=== PATIENT | female | born 1935 | race Asian ===

== ENCOUNTER 2020-05-30 20:05 | Inpatient (IN) | payer OTHER, MEDICARE ==
[~2020-05-30] VITALS: Ht 147.3 cm; Wt 86.6 kg
--- NOTE | 2020-05-30 20:06 | NUR ---
PT TAKEN TO BED 5 BY EMS VIA GURNEY. ERMD AT BEDSIDE EVALUATING PT.
[2020-05-30 20:10] VITALS: BP 113/57
--- NOTE | 2020-05-30 20:18 | NUR ---
ekg performed at bedside. ekg reads sinus rhythm @ 74
--- NOTE | 2020-05-30 20:30 | NUR ---
84 Y/O FEMALE BIBA C/O ALOC X TODAY. FAMILY SAYS SHE HAD A UTI FOR A WEEK AND THINKS THE ANTIIOTICS ARENT HELPING. + WEAKNESS AND LETHARGIC. FOLLOWS COMMANDS. A&O X2 (NAME, ). LUNG SOUNDS ARE DIMINISHED ALL THORUGHOUT. SPO2 IS 100& ON 4L NC. PT IS O2 DEPENDENT AT HOME. EQUAL CHEST RISE AND FALL. NO RESP DISTRESS NOTED. VSS. SKIN IS WARM AND DRY. CAP REFILL < 3. FAST IS NEG. EKG SHOWS RBBB WITH NSR. NKDA. PMH: COPD, GERD, CHF, HTN.
[2020-05-30 21:06] LABS: BASOPHILS # (AUTO) 0.1 K/uL (0.00-0.22); EOSINOPHILS # (AUTO) 0.2 K/uL (0-0.4); EOSINOPHILS % (AUTO) 2.4 % (0.0-4.0); HEMATOCRIT 23.3 % (36-48); HEMOGLOBIN 7.4 g/dL (12.0-16.0); LYMPHOCYTES # (AUTO) 0.9 K/uL (2.5-16.5); LYMPHOCYTES % (AUTO) 9.1 % (20.5-51.1); MEAN CORPUSCULAR HEMOGLOBIN 29 pg (27-31); MEAN CORPUSCULAR HGB CONC 32 g/dL (33-37); MEAN CORPUSCULAR VOLUME 91.5 fL (80-94); MONOCYTES # (AUTO) 0.7 K/uL (0.8-1.0); MONOCYTES % (AUTO) 7.3 % (1.7-9.3); NEUTROPHILS # (AUTO) 7.5 K/uL (1.8-7.7); NEUTROPHILS % (AUTO) 80.2 % (42.2-75.2); PLATELET COUNT (AUTO) 191 K/uL (140-450); RED BLOOD CELL COUNT(AUTO) 2.54 MIL/uL (4.20-5.40); RED CELL DISTRIBUTION WIDTH 15.4 % (11.6-13.7); WHITE BLOOD COUNT (AUTO) 9.4 K/uL (4.8-10.8)
[2020-05-30 21:17] LABS: ACETAMINOPHEN 1.2 ug/ml (10-30); ALBUMIN 3.2 g/dL (3.4-5.0); ANION GAP 8.4 (8-16); ASPARTATE AMINOTRANSFERASE 30 U/L (15-37); CARBON DIOXIDE 33.6 mmol/L (21-32); CHLORIDE 108 mmol/L (98-107); CREATININE 1.4 mg/dL (0.6-1.3); GLUCOSE 132 mg/dL (74-106); SALICYLATE < 2.8 mg/dL (2.8-20.0); SODIUM SERUM 145 mmol/L (136-145); TOTAL BILIRUBIN 0.6 mg/dL (0.0-1.0); UREA NITROGEN, BLOOD 17 mg/dL (7-18)
--- NOTE | 2020-05-30 21:50 | NUR ---
YELLOW CLEAR URINE COLLECTED AND SENT TO LAB. 300MLS OF URINE OUTPUT NOTED.
--- NOTE | 2020-05-30 22:00 | NUR ---
MULTIPLE ATTEMPTS ON IV. UNSUCCESSFUL, ANKIT BHAGAT AWARE.
--- NOTE | 2020-05-30 22:18 | NUR ---
KEVIN SWAB COLLECTED AND SENT TO LAB.
[2020-05-30 22:26] LABS: APPEARANCE,URINE SL CLOUDY (CLEAR); BILIRUBIN,URINE NEGATIVE (NEGATIVE); BLOOD, URINE TRACE-I (NEGATIVE); COLOR,URINE YELLOW (YELLOW); LEUKOCYTE ESTERASE ,URINE NEGATIVE (NEGATIVE); NITRITE, URINE NEGATIVE (NEGATIVE); PH,URINE 5.5 (5.0-9.0); UGLUCOSE NEGATIVE (NEGATIVE)
--- NOTE | 2020-05-30 23:16 | NUR ---
Female Ob Nurse accompanied female patient for Rectal Exam.
[2020-05-30 23:25] LABS: BARBITURATE, URINE NEGATIVE ng/ml (NEG <=200); BENZODIAZEPINE, URINE NEGATIVE ng/mL (NEG <=200); CANNABINOID, URINE NEGATIVE ng/mL (NEG <=50); COCAINE, URINE NEGATIVE ng/mL (NEG <=300); OPIATE, URINE NEGATIVE ng/mL (NEG <=2000); PHENCYCLIDINE SCREEN,URINE NEGATIVE ng/mL (NEG <=25)
--- NOTE | 2020-05-30 23:27 | NUR ---
LAB CALLED. PT IS COVID +
[2020-05-30] MEDS ORDERED: AZITHROMYCIN 500 MG in DEXTROSE 5% 250 ML IV ONE (23:30)
--- NOTE | 2020-05-30 23:30 | NUR ---
US GUIDED IV STARTED. 18 GUAGE ON LEFT UPPER ARM.
--- NOTE | 2020-05-30 23:33 | NUR ---
PT MOVED TO ER BED 1
[2020-05-30] MEDS ORDERED: NACL 0.9% 1,000 ML IV ONE (23:35)
[2020-05-30] MEDS ORDERED: cefTRIAXone 1,000 MG VIAL ONE (23:37)
[2020-05-30] MEDS ORDERED: AZITHROMYCIN 500 MG INJ VIAL IV ONE (23:38)
--- NOTE | 2020-05-30 23:49 | NUR ---
GAVE REPORT TO RAGHU WOODRUFF. TRANSFER OF CARE AT THIS TIME.
[2020-05-30 23:56] LABS: URINE AMORPHOUS URATE 1+ /HPF (None Seen); WBC,URINE 0-5 /HPF (0-5)
[2020-05-31] VITALS (28 sets, daily range): BP systolic 82–142; BP diastolic 30–68
[2020-05-31] MEDS ORDERED: GABA300C PO (00:06)
[2020-05-31] MEDS ORDERED: CARV25TA PO (00:06)
[2020-05-31] MEDS ORDERED: FURO-570 PO (00:06)
[2020-05-31] MEDS ORDERED: ZYL300 PO (00:06)
[2020-05-31] MEDS ORDERED: FLO110 INH (00:06)
[2020-05-31] MEDS ORDERED: TRI48 PO (00:06)
[2020-05-31] MEDS ORDERED: ALBU0.0912 IH (00:06)
[2020-05-31] MEDS ORDERED: MIRT-92 PO (00:06)
[2020-05-31] MEDS ORDERED: FERR325E14 PO (00:06)
[2020-05-31] MEDS ORDERED: SENN1TAB25 PO (00:06)
[2020-05-31] MEDS ORDERED: [UNRECOGNIZED DRUG - CODE] PO (00:06)
[2020-05-31] MEDS ORDERED: ASPI-1822 PO (00:06)
[2020-05-31] MEDS ORDERED: ATOR20TA PO (00:06)
[2020-05-31] MEDS ORDERED: SUCR1TAB35 PO (00:06)
[2020-05-31] MEDS ORDERED: NITR0.4T2 SL (00:06)
--- NOTE | 2020-05-31 00:08 | NUR ---
RT AT BEDSIDE.
--- NOTE | 2020-05-31 00:10 | NUR ---
Respiratory Therapist at bedside for respiratory intervention OF BIPAP. Patient RESPONDED WELL O2 SAT AT 100% POST PROCEDURE.
[2020-05-31] MEDS ORDERED: ALBUTEROL SULFATE/IPRATROPIU 3 ML SOL IH ONE (00:35)
--- NOTE | 2020-05-31 01:10 | NUR ---
CALLED DR. NUÑEZ ON THE OFFICE EXCHANGE VIA TELEPHONE PROVIDED . PER TELEPHONE FLYING TEACHER "SHE WILL PAGE PROVIDER".
[2020-05-31] MEDS ORDERED: ONDANSETRON 4 MG/2 ML VIAL IVP PRN (01:15)
--- NOTE | 2020-05-31 01:15 | NUR ---
RECEIVED A PHONE CALL FROM DR. NUÑEZ AND NOTIFIED DR. NUÑEZ OF PTS BP OF 114/46. AFTER PT RECEIVED A BLOUS OF 0.9% NS [address] NUÑEZ GAVE T.O TO ADMINISTER ANOTHER 1000ML OF 0.9% NS AT 100 ML/HR.
--- NOTE | 2020-05-31 02:14 | NUR ---
NO EMERGENCY CONTACT PROVIDED. PT UNABLE TO PROVIDE VERBAL CONSENT OR SIGN CONSENT FORM. CONSENT SIGNED BY TWO RN'S.
[2020-05-31] MEDS: NACL 0.9% 1,000 ML IV SCH ×2 (02:29→11:21)
--- NOTE | 2020-05-31 02:50 | NUR ---
PT TAKEN TO CT VIA GURISELA WITH PRIMARY NURSE AND RT PRESENT.
--- NOTE | 2020-05-31 03:12 | NUR ---
PT RETURN FROM CT
--- NOTE | 2020-05-31 03:45 | NUR ---
CONTINUES ON BIPAP, O2 SAT AT 99%. LUNG SOUNDS WHEEZES ON BILATERAL LUNG LONG A&P. HER HEART RATE WAS EVEN AND REGULAR. ABDOMEN WAS ROUND SOFT AND NON-TENDER. UNABLE TO RESPOND TO VERBAL COMMANDS BUT TO TOUCH AND PAINFUL STIMULI. REMAINS ON PROPOSAL SPECIALIST, BP MONITORING AND PULSE OXIMETRY.
--- NOTE | 2020-05-31 05:20 | NUR ---
CALLED DR. NUÑEZ ON THE OFFICE EXCHANGE VIA TELEPHONE PROVIDED . PER TELEPHONE JEWELER APPRENTICE "SHE WILL PAGE PROVIDER".
--- NOTE | 2020-05-31 05:40 | NUR ---
NO CALL BACK FROM DR. NUÑEZ AT THIS TIME WILL RE-ATTEMPT TO CALL AT THIS TIME.
--- NOTE | 2020-05-31 06:00 | NUR ---
CALLED DR. NUÑEZ AT THE OFFICE CSW STATED, "SHE WILL PAGE THE DOCTOR". NO RESPONSE AT THIS TIME.
--- NOTE | 2020-05-31 07:15 | NUR ---
REPORT GIVEN TO REBECCA KRISHNAMURTHY FOR CONTINUITY OF CARE.
--- NOTE | 2020-05-31 07:19 | NUR ---
PT CONTINUES ON BIPAP O2 SAT AT THIS TIME 98%. REMAINS ON CARDIAC MONITORING. PT WAS REPOSITION AND CHANGED AT THIS TIME. SKIN WAS LEFT CLEAN AND DRY. BED LOCKED AND IN LOWEST POSITION.
--- NOTE | 2020-05-31 07:22 | NUR ---
ASSUMED CARE OF PATIENT FROM RAGHU Duckworth PT ON BIPAP, REACTS TO PAIN AND TOUCH ONLY AT THIS TIME. VSSABIGAIL, AWAITING BED ON TELE FLOOR. WILL CONTINUE TO MONITOR.
--- NOTE | 2020-05-31 10:24 | NUR ---
SOCIAL WORK NOTE: SW WAS UNABLE TO MEET PATIENT AT BEDSIDE DUE TO MEDICAL CONDITION. PATIENT IS CURRENTLY ALOC AND PATIENT HAS NO EMERGENCY CONTACT. SW CONTACTED NURSE BUT WAS UNABLE TO REACH NURSE. SW WILL FOLLOW UP. Addendum: 05/31/20 at 1329 by Keenan Jaems SW CONTACTED RAGHU GARCIA REGARDING PATIENT. PER JOSE, PATIENT IS ALTERED AND IS UNABLE TO PROVIDE CONTACT INFORMATION. JOSE STATED THAT THERE WAS NO DOCUMENTATION FROM ED AND NO FAMILY HAS CALLED FOR PATIENT. JOSE STATED SHE WOULD FOLLOW UP WITH SW IF CONTACTS BECOME AVAILABLE.
[2020-05-31] MEDS: APIXABAN 2.5 MG TAB PO SCH ×2 (10:30→21:43)
--- NOTE | 2020-05-31 10:30 | NUR ---
RECEIVED PT FROM ED NURSE. PT RESTING IN BED. FLACC 0.RESPIRATIONS EVEN AND UNLABORED WITH NO SOB OR RESPIRATORY DISTRESS. SKIN WARM AND DRY TO TOUCH. IV SITE IN L UPPER ARM 18G IS CLEAN, DRY, AND INTACT. PT ON BIPAP. MRSA SWAB COLLECTED. VITAL SIGNS OBTAINED. SAFETY MEASURES IN PLACE. WILL CONTINUE TO MONITOR
--- NOTE | 2020-05-31 11:00 | NUR ---
UNABLE TO ADMINISTERE PT SCHED MED DUE TO PATIENTS CONDITION. SAFETY MEASURES IN PLACE. WILL CONTINUE TO MONITOR
--- NOTE | 2020-05-31 13:15 | NUR ---
PT RESTING IN BED. FLACC 0. RESPONSIVE TO TACTILE STIMULI. PT LETHARGIC AND DROWSY. RESPIRATIONS EVEN AND UNLABORED WITH NO SOB OR RESPIRATORY DISTRESS. SKIN WARM AND DRY TO TOUCH. SAFETY MEASURES IN PLACE. WILL CONTINUE TO MONITOR
--- NOTE | 2020-05-31 15:15 | NUR ---
PT RESTING IN BED. FLACC 0. PT VERY LETHARGIC AND UNABLE TO ANSWER QUESTIONS. PAGED DR. TREJO. SAID THAT HE IS ON HIS WAY TO SEE PT. RESPIRATIONS EVEN AND UNLABORED WITH NO SOB OR RESPIRATORY DISTRESS. SKIN WARM AND DRY TO TOUCH. SAFETY MEASURES IN PLACE. WILL CONTINUE TO MONITOR
--- NOTE | 2020-05-31 16:35 | NUR ---
PATIENT HAS BEEN SCREENED AND CATEGORIZED MODERATE NUTRITION RISK. PATIENT WILL BE SEEN WITHIN 3-5 DAYS OF ADMISSION. 06/02/20 06/04/[address]
[2020-05-31] MEDS ORDERED: ETOMIDATE 20 MG/10 ML VIAL IVP ONE ×2 (16:55→17:11)
[2020-05-31] MEDS ORDERED: SUCCINYLCHOLINE CHLORIDE 200 MG/10 ML VIAL IVP ONE (16:55)
--- NOTE | 2020-05-31 17:00 | NUR ---
RECEIVED REPORT FROM HEADING REPAIRER
--- NOTE | 2020-05-31 17:00 | NUR ---
TRANSFERRED PT TO ICU. ENDORSED PT TO ZUNILDA.
[2020-05-31] MEDS ORDERED: PROPOFOL 1000 MG/100 ML PREMIX 100 ML IV ONE (17:21)
[2020-05-31] MEDS ORDERED: remdesivir COMMUNICATION ORDER 1 EA MISC MC PRN (17:25)
--- NOTE | 2020-05-31 17:30 | NUR ---
INTUBATED BY DR JONES. ETT 7.5 23 AT THE TEETH. STARTED PROPOFOL DRIP AFTER INTUBATION
--- NOTE | 2020-05-31 17:40 | NUR ---
INSERTED OGT AND MARIE ORDERED. OGT PLACEMENT CONFIRMED BY XRAY
[2020-05-31] MEDS ORDERED: NOREPINEPHRINE 4 MG in DEXTROSE 5% 250 ML IV PRN (17:50)
[2020-05-31] MEDS ORDERED: DEXAMETHASONE 4 MG/ML VIAL IVP SCH (18:00)
--- NOTE | 2020-05-31 18:00 | NUR ---
LOR PICC LINE INSERTED. PLACEMENT CONFIRMED BY XRAY
--- NOTE | 2020-05-31 18:19 | NUR ---
[id number] HOLLINS WITH 7.5 ETT 23 AT THE GUM LINE BREATH SOUNDS PRESENT BILAT DIMINISHED SXN MIN AMT THIN OFF WHITE SECS ETT SECURE VENT PLUGGED INTO RED OUTLET AMBU BAG AT BEDSIDE
--- NOTE | 2020-05-31 18:22 | NUR ---
CALLED RT REGARDING REPORT ETT IN THE RIGHT MAIN BRONCHUS AND NEEDS TO BE PULLED BACK 4CM, RT STATED UNDERSTANDING.
[2020-05-31] MEDS: PROPOFOL 1000 MG/100 ML PREMIX 100 ML IV PRN (19:19)
--- NOTE | 2020-05-31 19:30 | NUR ---
Received SBAR report from oncoming nurse, care transferred over for chopper feeder.
--- NOTE | 2020-05-31 20:28 | NUR ---
RECEIVED PATIENT FROM DAY SHIFT ON SETTING PC 34, R 24, PEEP 5, FIO2 100% AND TITRATE FIO2 TO 60%. PT INTUBATED WITH ETT 7.5 SECURED WITH ANCHORFAST @ 21CM @ TEETH. VENTILATOR PLUGGED INTO THE RED OUTLET. BVM @ BEDSIDE, ALARMS ARE SET AUDIBLE. PT IS IN NO RESPIRATORY DISTRESS. AIRWAY PATENT, WILL CONTINUE TO MONITOR.
[2020-05-31 21:41] LABS: C-REACTIVE PROTEIN QUANT 1.1 mg/dL (0.0-0.9)
[2020-05-31 21:47] LABS: ANION GAP 4.3 (8-16); CARBON DIOXIDE 31.8 mmol/L (21-32); CHLORIDE 107 mmol/L (98-107); CREATININE 1.4 mg/dL (0.6-1.3); GLUCOSE 114 mg/dL (74-106); POTASSIUM 5.1 mmol/L (3.5-5.1); SODIUM SERUM 138 mmol/L (136-145); UREA NITROGEN, BLOOD 21 mg/dL (7-18)
[2020-05-31 21:55] LABS: THYROID STIMULATING HORMONE 0.21 uIU/mL (0.34-3.74)
[2020-05-31] MEDS ORDERED: CRUSHER, PILL MC ONE (22:25)
--- NOTE | 2020-05-31 23:30 | NUR ---
Propofol titrated down to 24.99 mcg/kg/min, patient tolerating adjustment well, RASS -3.
[2020-06-01] VITALS (54 sets, daily range): BP systolic 63–191; BP diastolic 32–109
[2020-06-01] MEDS: PROPOFOL 1000 MG/100 ML PREMIX 100 ML IV PRN ×2 (00:41→18:30)
--- NOTE | 2020-06-01 01:00 | NUR ---
Restraints placed for patient safety, patient occasionally pulling on peripheral iv lines and ET tube.
--- NOTE | 2020-06-01 07:29 | NUR ---
SBAR handoff report given to oncoming dayshift RN.
[2020-06-01] MEDS ORDERED: remdesivir CLINICAL MONITORING 1 EA MISC MC PRN (07:30)
--- NOTE | 2020-06-01 07:30 | NUR ---
RECEIVED REPORT FROM OVIDIO RN, PT. HAS ETT TO VENT , SKIN DRY AND WARM TO TOUCH OGT CLAMP. IV HASPICC LINE ON RT UPPER ARM , HEPLOCK ON LET AC.NFOLEY CATH DRAIN CLEAR BRITTANI URINE.
--- NOTE | 2020-06-01 08:45 | NUR ---
FOUND THAT PT HAS BLEEDING AROUND PICC LINE APPLIED DRY TOWEL AROUND IT..
[2020-06-01] MEDS ORDERED: REMDESIVIR (EUA) 200 MG in NACL 0.9% 100 ML IV SCH (09:00)
[2020-06-01] MEDS: APIXABAN 2.5 MG TAB PO SCH ×2 (09:00→21:00)
[2020-06-01] MEDS ORDERED: DEXAMETHASONE 4 MG/ML VIAL IVP SCH ×2 (09:00→11:30)
--- NOTE | 2020-06-01 09:17 | NUR ---
FNS CONSULT FOR TUBE FEEDING RECEIVED. PATIENT WAS RE-SCREENED AND RE-CATEGORIZED HIGH NUTRITIONAL RISK. REBECCA KOROMA RD
[2020-06-01 09:46] LABS: ALBUMIN 2.9 g/dL (3.4-5.0); ANION GAP 14.2 (8-16); ASPARTATE AMINOTRANSFERASE 30 U/L (15-37); CARBON DIOXIDE 27.5 mmol/L (21-32); CHLORIDE 110 mmol/L (98-107); CREATININE 1.2 mg/dL (0.6-1.3); GLUCOSE 123 mg/dL (74-106); POTASSIUM 4.7 mmol/L (3.5-5.1); SODIUM SERUM 147 mmol/L (136-145); TOTAL BILIRUBIN 0.8 mg/dL (0.0-1.0); UREA NITROGEN, BLOOD 22 mg/dL (7-18)
[2020-06-01] MEDS: PANTOPRAZOLE 40 MG INJ VIAL IVP SCH (09:57)
--- NOTE | 2020-06-01 11:00 | NUR ---
SEEN BY DR JONES ORDER RECEIVED,
[2020-06-01 11:20] LABS: BASOPHILS % (AUTO) 0.5 % (0.0-2.0); HEMATOCRIT 20.8 % (36-48); LYMPHOCYTES # (AUTO) 0.7 K/uL (2.5-16.5); LYMPHOCYTES % (AUTO) 12.5 % (20.5-51.1); MEAN CORPUSCULAR HEMOGLOBIN 29 pg (27-31); MEAN CORPUSCULAR HGB CONC 32 g/dL (33-37); MEAN CORPUSCULAR VOLUME 90.2 fL (80-94); MONOCYTES # (AUTO) 0.4 K/uL (0.8-1.0); MONOCYTES % (AUTO) 8.2 % (1.7-9.3); NEUTROPHILS # (AUTO) 4.2 K/uL (1.8-7.7); NEUTROPHILS % (AUTO) 78.8 % (42.2-75.2); PLATELET COUNT (AUTO) 172 K/uL (140-450); RED CELL DISTRIBUTION WIDTH 15.2 % (11.6-13.7); WHITE BLOOD COUNT (AUTO) 5.3 K/uL (4.8-10.8)
--- NOTE | 2020-06-01 11:50 | NUR ---
LAB CALL TO NOTIFIED PT. HAS HGB 6,7 DR JONES NOTIFIED ORDER TO TRANSFUSE 2UNITS OF [facility].
[2020-06-01 11:52] LABS: HEMOGLOBIN 6.7 g/dL (12.0-16.0)
[2020-06-01 13:34] LABS: MAGNESIUM 1.9 mg/dL (1.8-2.4)
--- NOTE | 2020-06-01 14:09 | NUR ---
06/01/20 RD INITIAL ASSESSMENT COMPLETED PLEASE REFER TO NUTRITION ASSESSMENT UNDER CARE ACTIVITY FOR ESTIMATED NUTRITIONAL NEEDS. 1. RD RECOMMENDED JEVITY 1.2 @ 50 ML/HR X 24 HR. START AT 10 ML/HR AND INCREASE BY 10ML Q6H -THIS WILL PROVIDE 1440 KCAL AND 67 GM OF PROTEIN WHICH MEETS 100% OF ESTIMATED KCAL AND PROTEIN NEEDS 2. RECOMMEND FREE WATER FLUSH OF 115 ML Q6H 3. CONTINUE VITAMIN C AND ZINC SUPPLEMENTATION 4. RD TO FOLLOW-UP 2-3 DAYS, HIGH RISK REBECCA KOROMA RD
--- NOTE | 2020-06-01 17:30 | NUR ---
SEEN BY DR. TREJO NO ORDER CHANGED,
--- NOTE | 2020-06-01 19:00 | NUR ---
PT SLEEPING REPORT GIVE TO ADELFO KRISHNAMURTHY.
--- NOTE | 2020-06-01 19:50 | NUR ---
REPORT RECEIVED FROM DAY SHIFT RN. PT ETT TO VENT. A/C PC- FIO2 35%, RATE- 20, PEEP-5. RESPIRATION EVEN AND UNLABORED. CHEST EXPANSION SYMMETRICAL. SKIN WARM AND DRY. ORAL MUCOSA PINK AND MOIST. IV ACCESS ON THE LEFT AC G18 AND RIGHT UPPER ARM PICC. ASYMPTOMATIC, PATENT AND INTACT. PT ON PROPOFOL @ 24 MCG/KG/MIN. RASS -3. OGT IN PLACE, PATENT AND INTACT. MARIE CATHETER DRAINING TO GRAVITY. BED IN LOWEST POSITION, SIDE RAILS UP, HOB 30 DEGREES. ISOLATION PRECAUTION MAINTAINED.
--- NOTE | 2020-06-01 20:00 | NUR ---
JEVITY 1.2 HUNG AND STARTED @ 10MLS/HR. FWF 115 Q6H.
--- NOTE | 2020-06-01 20:00 | NUR ---
RECEIVED PATIENT FROM DAY SHIFT ON PC 30,RR20,PEEP 5, 35%. VENT PLUGGED INTO RED OUTLET. BMV AT BEDSIDE. ETT SECURED. ALARMS SET. NO RESPIRATORY DISTRESS NOTED. WILL CONT TO MONITOR
[2020-06-01] MEDS: ASCORBIC ACID 500 MG/5 ML ORASYR PO SCH (20:33)
[2020-06-01] MEDS: ZINC SULF 220 MG CAP PO SCH (20:34)
--- NOTE | 2020-06-01 21:00 | NUR ---
1ST UNIT PRBC HUNG AND INFUSING. WILL CLOSELY MONITOR PT.
--- NOTE | 2020-06-01 22:50 | NUR ---
PAGED MD BOILER HOUSE OPERATOR AT THIS TIME FOR HIGH BLOOD PRESSURE READINGS. AWAITING FOR RETURN CALL.
--- NOTE | 2020-06-01 23:30 | NUR ---
SPOKE TO DR. TRUJILLO. ORDERED HYDRALAZINE 10MG IV Q4 PRN FOR SBP >160. WILL MONITOR PT.
[2020-06-02] VITALS (58 sets, daily range): BP systolic 110–196; BP diastolic 44–91
--- NOTE | 2020-06-02 | NUR ---
INCREASED FEEDING RATE TO 20MLS/HR. FWF 115 EVERY 6HRS. PT TOLERATING FEEDING WELL. WILL CONTINUE TO MONITOR.
[2020-06-02] MEDS: hydrALAZINE 20 MG/ML VIAL IVP PRN ×4 (00:15→23:12)
--- NOTE | 2020-06-02 00:30 | NUR ---
2ND UNIT PRBC HUNG AND INFUSING. WILL MONITOR PT.
--- NOTE | 2020-06-02 02:00 | NUR ---
PT CLEANED. PT HAD A BM. NO DISTRESS OBSERVED. WILL CONTINUE TO MONITOR.
[2020-06-02] MEDS: PROPOFOL 1000 MG/100 ML PREMIX 100 ML IV PRN ×4 (02:30→23:12)
--- NOTE | 2020-06-02 04:00 | NUR ---
PT WAS TURNED AND REPOSITIONED. PRESSURE AREAS OFF LOADED. INCREASE FEEDING RATE TO 30MLS/HR. PT TOLERATING FEEDING WELL. WILL CONTINUE TO MONITOR PT.
--- NOTE | 2020-06-02 06:00 | NUR ---
MORNING CARE PROVIDED. NO DISTRESS OBSERVED. TURNED AND REPOSITIONED PT. WILL CONTINUE TO MONITOR.
--- NOTE | 2020-06-02 07:31 | NUR ---
RECEIVED REPORT FROM ADELFO KRISHNAMURTHY .ETT TO VENT SKIN DRY AND WARM TO TOUCH .OGT FEEDING IV LOR PICC LINE FPLEY DRAIN BRITTANI URINE.
[2020-06-02] MEDS: DEXAMETHASONE 10 MG/ML VIAL IVP SCH (08:24)
[2020-06-02] MEDS: carvediloL 6.25 MG TAB PO SCH ×2 (08:26→21:43)
[2020-06-02] MEDS: ASCORBIC ACID 500 MG/5 ML ORASYR PO SCH ×2 (08:26→21:43)
[2020-06-02] MEDS: PANTOPRAZOLE 40 MG INJ VIAL IVP SCH (08:26)
[2020-06-02] MEDS: ZINC SULF 220 MG CAP PO SCH ×2 (08:27→21:43)
[2020-06-02] MEDS: REMDESIVIR (EUA) 100 MG in NACL 0.9% 100 ML IV SCH (12:00)
--- NOTE | 2020-06-02 12:52 | NUR ---
PT. ADMITTED WITH LOW CARLITA SCALE AT RISK, COVID POSITIVE, CONTINUE TO FOLLOW PRESSURE INJURY PREVENTION INTERVENTIONS. -TURN AND REPOSITION PATIENT Q 2H -ASSESS AND MONITOR SKIN CONDITION DURING POSITION CHANGE -OFFLOAD BILATERAL HEELS BY PLACING PILLOWS UNDER CALVES AT ALL TIMES, UNLESS OTHERWISE CONTRAINDICATED -PRESSURE REDISTRIBUTION BY PLACING PILLOWS AND OFFLOADING SACRALCOCCYX -KEEP SKIN CLEAN AND DRY AT ALL TIMES.
[2020-06-02 13:07] LABS: BASOPHILS % (AUTO) 0.3 % (0.0-2.0); HEMATOCRIT 32.7 % (36-48); HEMOGLOBIN 10.8 g/dL (12.0-16.0); LYMPHOCYTES # (AUTO) 0.8 K/uL (2.5-16.5); LYMPHOCYTES % (AUTO) 5.9 % (20.5-51.1); MEAN CORPUSCULAR HEMOGLOBIN 29 pg (27-31); MEAN CORPUSCULAR HGB CONC 33 g/dL (33-37); MEAN CORPUSCULAR VOLUME 88.6 fL (80-94); MONOCYTES # (AUTO) 0.6 K/uL (0.8-1.0); MONOCYTES % (AUTO) 4.4 % (1.7-9.3); NEUTROPHILS # (AUTO) 11.9 K/uL (1.8-7.7); NEUTROPHILS % (AUTO) 89.4 % (42.2-75.2); PLATELET COUNT (AUTO) 157 K/uL (140-450); RED CELL DISTRIBUTION WIDTH 15.7 % (11.6-13.7); WHITE BLOOD COUNT (AUTO) 13.3 K/uL (4.8-10.8)
[2020-06-02 13:22] LABS: ALBUMIN 2.9 g/dL (3.4-5.0); ANION GAP 9.1 (8-16); ASPARTATE AMINOTRANSFERASE 53 U/L (15-37); CARBON DIOXIDE 31.9 mmol/L (21-32); CHLORIDE 109 mmol/L (98-107); GLUCOSE 125 mg/dL (74-106); MAGNESIUM 1.9 mg/dL (1.8-2.4); SODIUM SERUM 146 mmol/L (136-145); TOTAL BILIRUBIN 1.5 mg/dL (0.0-1.0); UREA NITROGEN, BLOOD 26 mg/dL (7-18)
[2020-06-02 14:00] LABS: FREE T4 (FREE THYROXINE) 1.08 ng/dL (0.76-1.46); THYROID STIMULATING HORMONE 0.31 uIU/mL (0.34-3.74)
--- NOTE | 2020-06-02 14:00 | NUR ---
TEMP 98 BLOOD PRESSURE 171/77 PT IS SLEEPING QUIETLY UNDER SEDATION,
--- NOTE | 2020-06-02 20:00 | NUR ---
REPORT RECEIVED FROM DAY SHIFT RN. PT ETT TO VENT. A/C PC- FIO2 35%, RATE- 20, PEEP-5. RESPIRATION EVEN AND UNLABORED. CHEST EXPANSION SYMMETRICAL. SKIN WARM AND DRY. ORAL MUCOSA PINK AND MOIST. IV ACCESS ON THE LEFT AC G18 AND RIGHT UPPER ARM PICC. ASYMPTOMATIC, PATENT AND INTACT. PT ON PROPOFOL @ 25 MCG/KG/MIN. RASS -1. OGT IN PLACE, PATENT AND INTACT. JEVITY 1.2 @ 50MLS/HR WITH FWF 115 EVERY 6HRS. MARIE CATHETER DRAINING TO GRAVITY. BED IN LOWEST POSITION, SIDE RAILS UP, HOB 30 DEGREES. ISOLATION PRECAUTION MAINTAINED. WILL CONTINUE TO MONITOR.
[2020-06-03] VITALS (56 sets, daily range): BP systolic 137–197; BP diastolic 52–98
--- NOTE | 2020-06-03 | NUR ---
TURNED AND REPOSITIONED PT. PRESSURE AREAS OFF LOADED. ORAL CARE PROVIDED. WILL CONTINUE TO MONITOR.
--- NOTE | 2020-06-03 04:00 | NUR ---
PT WAS TURNED AND REPOSITIONED. PRESSURE AREAS OFF LOADED. PT TOLERATING FEEDING WELL. WILL CONTINUE TO MONITOR PT.
[2020-06-03] MEDS: hydrALAZINE 20 MG/ML VIAL IVP PRN ×2 (06:05→19:49)
[2020-06-03] MEDS: PROPOFOL 1000 MG/100 ML PREMIX 100 ML IV PRN ×2 (06:37→15:53)
[2020-06-03 07:02] LABS: ALBUMIN 2.6 g/dL (3.4-5.0); ANION GAP 6.4 (8-16); ASPARTATE AMINOTRANSFERASE 45 U/L (15-37); CARBON DIOXIDE 31.1 mmol/L (21-32); CHLORIDE 111 mmol/L (98-107); CREATININE 1.1 mg/dL (0.6-1.3); GLUCOSE 190 mg/dL (74-106); MAGNESIUM 2.1 mg/dL (1.8-2.4); POTASSIUM 3.5 mmol/L (3.5-5.1); SODIUM SERUM 145 mmol/L (136-145); TOTAL BILIRUBIN 1.2 mg/dL (0.0-1.0); UREA NITROGEN, BLOOD 34 mg/dL (7-18)
--- NOTE | 2020-06-03 07:25 | NUR ---
RECEIVED WINDOW SIDE REPORT FROM AUTOMOTIVE WINDOW TINTER NURSE. PT SUPINE IN BED, HOB 30 DEGREES, RASS -1. ETT TO VENT: ACPC FIO2 35%, RR 20, PEEP 5, BREATHING EVEN AND UNLABORED. OG TUBE FEEDING RUNNING: JEVITY 1.2 50 ML/HR. MARIE CATHETER DRAINING TO GRAVITY CLEAR YELLOW URINE. L AC 20G, LOR PICC LINE CLEAN DRY INTACT. INFUSING PROPOFOL @ 25 MCG/KG/MIN, NS @ 5 ML/HR. BED IN LOW POSITION, FASHION SUPERVISOR IN PLACE. SAFETY MEASURES IN PLACE.
[2020-06-03] MEDS: PANTOPRAZOLE 40 MG INJ VIAL IVP SCH (09:38)
[2020-06-03] MEDS: DEXAMETHASONE 10 MG/ML VIAL IVP SCH (09:38)
[2020-06-03] MEDS: carvediloL 6.25 MG TAB PO SCH ×2 (09:38→21:00)
[2020-06-03] MEDS: ASCORBIC ACID 500 MG/5 ML ORASYR PO SCH ×2 (09:39→21:25)
[2020-06-03] MEDS: ZINC SULF 220 MG CAP PO SCH ×2 (09:39→21:26)
--- NOTE | 2020-06-03 09:51 | NUR ---
ADMINISTERED SCHEDULED AM MEDS PER MD ORDER. MED EDUCATION PROVIDED, REINFORCEMENT NEEDED. OG TUBE RESIDUAL, 5 ML, FLUSHED BEFORE AND AFTER MEDS.PROVIDED MORNING HYGIENE AND ORAL CARE. HCG BATH PROVIDED, CATHETER CARE PROVIDED. PT TOLERATED WELL. BED IN LOW POSITION, AGRICULTURAL REAL ESTATE AGENT IN PLACE, SAFETY MEASURES IN PLACE.
--- NOTE | 2020-06-03 12:32 | NUR ---
1200 ORDER OF REMDESIVIR NOT AVAILABLE. CALLED PHARMACY, PHARMACY AWARE AND WILL DELIVER SOON POSSIBLE.
[2020-06-03] MEDS: REMDESIVIR (EUA) 100 MG in NACL 0.9% 100 ML IV SCH (14:54)
[2020-06-03] MEDS: ACETAMINOPHEN 325 MG TAB PO PRN (15:53)
--- NOTE | 2020-06-03 15:57 | NUR ---
STARTED NEW BOTTLE OF PROPOFOL. PT COMPLAINS OF PAIN, PRN TYLENOL ADMINISTERED. MED EDUCATION PROVIDED, REINFORCEMENT NEEDED.
--- NOTE | 2020-06-03 20:00 | NUR ---
REPORT RECEIVED FROM DAY SHIFT RN. PT ETT TO VENT. A/C PC- FIO2 35%, RATE- 20, PEEP-5. RESPIRATION EVEN AND UNLABORED. CHEST EXPANSION SYMMETRICAL. SKIN WARM AND DRY. ORAL MUCOSA PINK AND MOIST. IV ACCESS ON THE LEFT AC G18 AND RIGHT UPPER ARM PICC. ASYMPTOMATIC, PATENT AND INTACT. PT ON PROPOFOL @ 25 MCG/KG/MIN. RASS -1. OGT IN PLACE, PATENT AND INTACT. JEVITY 1.2 @ 50MLS/HR WITH FWF 115 EVERY 6HRS. MARIE CATHETER DRAINING TO GRAVITY. BED IN LOWEST POSITION, SIDE RAILS UP, HOB 30 DEGREES. ISOLATION PRECAUTION MAINTAINED. WILL CONTINUE TO MONITOR. Addendum: 06/04/20 at 0026 by Jesus Mendez RN PROPOFOL @ 35 MCG/KG/MIN NOT PROPOFOL @ 25 MCG/KG/MIN
--- NOTE | 2020-06-03 22:00 | NUR ---
TURNED AND REPOSITIONED. PRESSURE AREAS OFF LOADED. WILL CONTINUE TO MONITOR. RASS -1.
[2020-06-03 22:08] LABS: BASOPHILS % (AUTO) 0.4 % (0.0-2.0); HEMATOCRIT 32.5 % (36-48); HEMOGLOBIN 10.6 g/dL (12.0-16.0); LYMPHOCYTES # (AUTO) 0.9 K/uL (2.5-16.5); MEAN CORPUSCULAR HEMOGLOBIN 30 pg (27-31); MEAN CORPUSCULAR HGB CONC 33 g/dL (33-37); MEAN CORPUSCULAR VOLUME 91.1 fL (80-94); MONOCYTES # (AUTO) 0.3 K/uL (0.8-1.0); MONOCYTES % (AUTO) 4.2 % (1.7-9.3); NEUTROPHILS # (AUTO) 6.6 K/uL (1.8-7.7); NEUTROPHILS % (AUTO) 84.4 % (42.2-75.2); PLATELET COUNT (AUTO) 151 K/uL (140-450); RED BLOOD CELL COUNT(AUTO) 3.57 MIL/uL (4.20-5.40); RED CELL DISTRIBUTION WIDTH 16.3 % (11.6-13.7); WHITE BLOOD COUNT (AUTO) 7.8 K/uL (4.8-10.8)
[2020-06-04] VITALS (44 sets, daily range): BP systolic 128–192; BP diastolic 38–84
[2020-06-04] MEDS: PROPOFOL 1000 MG/100 ML PREMIX 100 ML IV PRN ×5 (00:15→18:53)
[2020-06-04] MEDS: hydrALAZINE 20 MG/ML VIAL IVP PRN ×4 (04:00→19:48)
[2020-06-04 06:41] LABS: ALBUMIN 2.4 g/dL (3.4-5.0); ANION GAP 8.9 (8-16); ASPARTATE AMINOTRANSFERASE 43 U/L (15-37); CARBON DIOXIDE 29.8 mmol/L (21-32); CHLORIDE 111 mmol/L (98-107); GLUCOSE 129 mg/dL (74-106); MAGNESIUM 2.2 mg/dL (1.8-2.4); POTASSIUM 3.7 mmol/L (3.5-5.1); SODIUM SERUM 146 mmol/L (136-145); UREA NITROGEN, BLOOD 37 mg/dL (7-18)
--- NOTE | 2020-06-04 07:24 | NUR ---
RECEIVED WINDOW SIDE REPORT FROM SAND MILL OPERATOR NURSE. PT SUPINE IN BED, HOB 30 DEGREES, RASS -1. ETT TO VENT: ACPC FIO2 35%, RR 20, PEEP 5, BREATHING EVEN AND UNLABORED, NO SIGNS OF ACUTE DISTRESS NOTED. OG TUBE FEEDING RUNNING: JEVITY 1.2 50 ML/HR. MARIE CATHETER DRAINING TO GRAVITY CLEAR YELLOW URINE. L AC 20G, LOR PICC LINE CLEAN DRY INTACT. INFUSING PROPOFOL @ 35 MCG/KG/MIN, NS @ 5 ML/HR. BED IN LOW POSITION, HOB 30 DEGREES. USER INTERFACE DESIGNER IN PLACE. SAFETY MEASURES IN PLACE.
[2020-06-04] MEDS: carvediloL 6.25 MG TAB PO SCH ×2 (09:00→21:00)
[2020-06-04] MEDS: DEXAMETHASONE 10 MG/ML VIAL IVP SCH (09:50)
[2020-06-04] MEDS: ZINC SULF 220 MG CAP PO SCH ×2 (09:51→20:02)
[2020-06-04] MEDS: ASCORBIC ACID 500 MG/5 ML ORASYR PO SCH ×2 (09:51→20:02)
[2020-06-04] MEDS: PANTOPRAZOLE 40 MG INJ VIAL IVP SCH (09:51)
--- NOTE | 2020-06-04 09:52 | NUR ---
ADMINISTERED SCHEDULED AM MEDS PER MD ORDER. PRN HYDRALAZINE ADMINISTERED, BP 197/85, COREG HELD DUE TO HR TRENDING ,60 BPM. MED EDUCATION PROVIDED, REINFORCEMENT NEEDED PT VENTILATED, RASS -1. G TUBE RESIDUAL 5 ML, FLUSHED BEFORE AND AFTER MEDS. MORNING HYGIENE PROVIDED, REPOSITIONED AND OFFLOADED PRESSURE WITH PILLOWS. HCG BATH PROVIDED, CATHETER CARE PROVIDED. BED IN LOW POSITION, HOB 30 DEGREES. CONGREGATIONAL CARE PASTOR IN PLACE. SAFETY MEASURES IN PLACE.
[2020-06-04 11:33] LABS: BASOPHILS % (AUTO) 0.1 % (0.0-2.0); HEMATOCRIT 32.4 % (36-48); HEMOGLOBIN 10.7 g/dL (12.0-16.0); LYMPHOCYTES % (AUTO) 13.1 % (20.5-51.1); MEAN CORPUSCULAR HEMOGLOBIN 30 pg (27-31); MEAN CORPUSCULAR HGB CONC 33 g/dL (33-37); MEAN CORPUSCULAR VOLUME 89.6 fL (80-94); MONOCYTES # (AUTO) 0.7 K/uL (0.8-1.0); MONOCYTES % (AUTO) 8.9 % (1.7-9.3); NEUTROPHILS % (AUTO) 77.9 % (42.2-75.2); PLATELET COUNT (AUTO) 125 K/uL (140-450); RED BLOOD CELL COUNT(AUTO) 3.62 MIL/uL (4.20-5.40); RED CELL DISTRIBUTION WIDTH 15.7 % (11.6-13.7); WHITE BLOOD COUNT (AUTO) 7.8 K/uL (4.8-10.8)
[2020-06-04] MEDS: REMDESIVIR (EUA) 100 MG in NACL 0.9% 100 ML IV SCH (12:36)
--- NOTE | 2020-06-04 15:24 | NUR ---
06/04/20 RD FOLLOW UP COMPLETED PLEASE REFER TO NUTRITION PROGRESS NOTE UNDER CARE ACTIVITY FOR ESTIMATED NUTRITION NEEDS. RD RECOMMENDATIONS: 1.RECOMMEND CONTINUE JEVITY 1.2 @ 50 ML/HR X 24 HR. -THIS WILL PROVIDE 1440 KCAL AND 67 GM OF PROTEIN WHICH MEETS 100% OF ESTIMATED KCAL AND PROTEIN NEEDS 2. RECOMMEND CONTINUE FREE WATER FLUSH OF 115 ML Q6H 3. CONTINUE VITAMIN C AND ZINC SUPPLEMENTATION 4. RD TO FOLLOW-UP 2-3 DAYS, HIGH RISK ADDY MCLEOD MBA, RD
--- NOTE | 2020-06-04 19:42 | NUR ---
RECEIVED PATIENT FROM AM SHIFT. PATIENT WAS SEEN AND ASSESSED. FOUND PATIENT IN SUPINE POSITIONED. PATIENT IS INTUBATED WITH ETT SIZE 7.5 AND SECURED WITH ANCHOR-FAST @ 24 cm. PATIENT IS ON VENT SETTINGS: AC/PC RR 20, PIP 30, PEEP 5, FiO2 35% WITH SPO2 OF 96%. VENT IS PLUGGED IN RED OUTLET. ALARMS SET AND AUDIBLE TO ENVIRONMENT. SUCTIONED SMALL AMOUNT OF YELLOW THICK SECRETIONS FROM ETT. AIRWAY IS PATENT. AUSCULTATION REVEALS BILATERAL RALES BREATH SOUNDS ON BOTH UPPER AND LOWER LOBES. PATIENT IS IN NO APPARENT RESPIRATORY DISTRESS AT THIS TIME. WILL CONTINUE TO MONITOR PATIENT.
--- NOTE | 2020-06-04 20:00 | NUR ---
REPORT RECEIVED FROM DAY SHIFT RN. PT ETT TO VENT. A/C PC- FIO2 35%, RATE- 20, PEEP-5. RESPIRATION EVEN AND UNLABORED. CHEST EXPANSION SYMMETRICAL. SKIN WARM AND DRY. ORAL MUCOSA PINK AND MOIST. IV ACCESS ON THE LEFT AC G18 AND RIGHT UPPER ARM PICC. ASYMPTOMATIC, PATENT AND INTACT. PT ON PROPOFOL @ 35 MCG/KG/MIN. RASS -1. OGT IN PLACE, PATENT AND INTACT. JEVITY 1.2 @ 50MLS/HR WITH FWF 115 EVERY 6HRS. MARIE CATHETER DRAINING TO GRAVITY. BED IN LOWEST POSITION, SIDE RAILS UP, HOB 30 DEGREES. ISOLATION PRECAUTION MAINTAINED. WILL CONTINUE TO MONITOR.
--- NOTE | 2020-06-04 22:00 | NUR ---
TURNED AND REPOSITIONED PT. PRESSURE AREAS OFFLOADED. NO DISTRESS NOTED AT THIS TIME.
[2020-06-05] VITALS (36 sets, daily range): BP systolic 101–162; BP diastolic 12–73
[2020-06-05] MEDS: PROPOFOL 1000 MG/100 ML PREMIX 100 ML IV PRN ×6 (00:42→22:05)
[2020-06-05] MEDS: Z-GUARD PASTE TP SCH ×2 (01:39→13:00)
[2020-06-05 06:45] LABS: BASOPHILS % (AUTO) 0.1 % (0.0-2.0); EOSINOPHILS % (AUTO) 0.1 % (0.0-4.0); HEMATOCRIT 29.6 % (36-48); LYMPHOCYTES # (AUTO) 0.9 K/uL (2.5-16.5); LYMPHOCYTES % (AUTO) 10.5 % (20.5-51.1); MEAN CORPUSCULAR HEMOGLOBIN 30 pg (27-31); MEAN CORPUSCULAR HGB CONC 34 g/dL (33-37); MEAN CORPUSCULAR VOLUME 89.1 fL (80-94); MONOCYTES # (AUTO) 0.7 K/uL (0.8-1.0); MONOCYTES % (AUTO) 8.6 % (1.7-9.3); NEUTROPHILS # (AUTO) 6.8 K/uL (1.8-7.7); NEUTROPHILS % (AUTO) 80.7 % (42.2-75.2); PLATELET COUNT (AUTO) 125 K/uL (140-450); RED BLOOD CELL COUNT(AUTO) 3.32 MIL/uL (4.20-5.40); RED CELL DISTRIBUTION WIDTH 15.8 % (11.6-13.7); WHITE BLOOD COUNT (AUTO) 8.4 K/uL (4.8-10.8)
[2020-06-05 07:20] LABS: ALBUMIN 2.3 g/dL (3.4-5.0); ANION GAP 12.1 (8-16); ASPARTATE AMINOTRANSFERASE 51 U/L (15-37); CARBON DIOXIDE 27.6 mmol/L (21-32); CHLORIDE 110 mmol/L (98-107); GLUCOSE 166 mg/dL (74-106); MAGNESIUM 2.2 mg/dL (1.8-2.4); POTASSIUM 3.7 mmol/L (3.5-5.1); SODIUM SERUM 146 mmol/L (136-145); TOTAL BILIRUBIN 0.9 mg/dL (0.0-1.0); UREA NITROGEN, BLOOD 39 mg/dL (7-18)
--- NOTE | 2020-06-05 07:30 | NUR ---
RECEIVED REPORT FROM ADELFO, ETT TO VENTSKIN DRY AND WARM TO TOUCH TEMP 99.1 AX, PT, IS AWAKE RASS -1/IV ONPIC LOR INFUSSING PROPOFOL @ 35 MCG. AND SLINE LOCK ONLT AC. MARIE CATH DRAIN LIGHT BRITTANI URINE,.
[2020-06-05] MEDS: DEXAMETHASONE 10 MG/ML VIAL IVP SCH (09:00)
[2020-06-05] MEDS: PANTOPRAZOLE 40 MG INJ VIAL IVP SCH (09:00)
[2020-06-05] MEDS: ZINC SULF 220 MG CAP PO SCH ×2 (09:00→21:44)
[2020-06-05] MEDS: ASCORBIC ACID 500 MG/5 ML ORASYR PO SCH ×2 (09:00→21:44)
[2020-06-05] MEDS: carvediloL 6.25 MG TAB PO SCH ×2 (09:00→21:45)
--- NOTE | 2020-06-05 12:00 | NUR ---
VISIT BY DR. LOYD NO ORDER CHANGED.
--- NOTE | 2020-06-05 12:01 | NUR ---
DISCHARGE PLANNING: THIS IS AN 84 Y/O FEMALE PATIENT WHO WAS ADMITTED TO [facility] AND WAS TRANSFERRED TO ICU, INTUBATED TO VENT FIO2 35, PEEP 5, O2 SAT 98%. SEDATED WITH PROPOFOL. ON REMDESIVIR AND DEXAMETHASONE. Addendum: 06/07/20 at 1421 by Shani Zafar CM PER DR. LOYD, WILL PLAN FOR EARLY TRACH IF UNABLE TO TOLERATE SBT'S Addendum: 06/12/20 at 1130 by Shani Zafar REMAINS ORALLY INTUBATED TO VENT, FIO2 24%, PEEP 5, O2 SAT 98%. SEDATED WITH PROPOFOL AND FENTANYL. PER NEPHRO - CONTINUE DAILY SBT'S WITH GOAL TO EXTUBATE. Addendum: 06/13/20 at 1207 by Shani Zafar CM S/P EXTUBATION 06/12 AT 1440, ON BIPAP. PATIENT SPIKED A TEMP OF 101.5 ON 06/12/2020 Addendum: 06/14/20 at 1305 by Shani Zafar CM POC TO [facility] DISCUSSED WITH DR TRUJILLO AND IS IN AGREEMENT. ORDER TRANSCRIBED AND CARRIED OUT. CONTACTED PATIENT'S DAUGHTER LEON FOFANA AT [phone] TO DISCUSS PLAN AND IS IN AGREEMENT. ALL QUESTIONS AND CONCERNS ANSWERED. RASHMI OF [facility] MADE AWARE. REFERRAL AND ORDER SENT TO [facility] AND [facility]. TEOFILO OF [facility] MADE AWARE OF REFERRAL. Addendum: 06/14/20 at 1356 by Shani Zafar CM LATE ENTRY: [facility] REQUESTED IF WE CAN RE [facility] FOR COVID. DR. TRUJILLO MADE AWARE. ORDER TRANSCRIBED. CHARGE NURSE RAMIREZ MADE AWARE. Addendum: 06/14/20 at 1645 by Shani Zafar CM CURRENT POSITIVE RESULTS OF COVID TEST SENT TO [facility]. [facility] MADE AWARE. Addendum: 06/14/20 at 1702 by Shani Zafar CM PER [facility] THEY ARE ABLE TO ACCEPT THE PATIENT PENDING BED AVAILABILITY AND AUTH. HE STATED HE REQUESTED BED AT [facility] AND [facility]. WILL FOLLOW UP. Addendum: 06/14/20 at 1705 by Shani Zafar CM [facility] MADE AWARE. Addendum: 06/14/20 at 1713 by Shani Zafar CM ENDORSED TO MEN'S FURNISHINGS SALESPERSON MARIANN.
--- NOTE | 2020-06-05 14:00 | NUR ---
VISIT BY DR YOO NO ORDER CHANGED HE HAS PUT IN HIS NOTE THAT TO WHATCH FOR FLUID OVER LOAD.
[2020-06-05] MEDS: REMDESIVIR (EUA) 100 MG in NACL 0.9% 100 ML IV SCH (14:54)
--- NOTE | 2020-06-05 17:16 | NUR ---
PT REMAINS ON DOCUMENTED VENT SETTINGS PT AWAKE NOT IN ANY DISTRESS. VENT ALARMS ON AND FUNCTIONING. ETT SECURE WITH A PATENT AIRWAY.
--- NOTE | 2020-06-05 19:30 | NUR ---
REPORT GIVE TO MICHELE KRISHNAMURTHY,
--- NOTE | 2020-06-05 19:57 | NUR ---
RECEIVED PATIENT ON VENT WITH SETTING OF AC/PC , FIO2 35% PEEP 5 RATE OF 20, SEDATED WITH PROPOFOL, RASS -1, INFUSING AT LOR PICC LINE ,SITE IS CLEAN DRESSING INTACT, OGT WITH JEVITY @ 50 CC/HR, ON PULL SOCKET ASSEMBLER SINUS RHYTHM ON THE MONITOR. F/C IS IN PLACE AND DRAINING TO GRAVITY. WILL CONTINUE THE CARE.
[2020-06-06] VITALS (36 sets, daily range): BP systolic 110–183; BP diastolic 47–100
--- NOTE | 2020-06-06 | NUR ---
ONE UNIT OF CONVALESCENT PLASMA COMPLETED AND NO REACTION NOTED,
[2020-06-06] MEDS: Z-GUARD PASTE TP SCH ×2 (01:00→12:28)
--- NOTE | 2020-06-06 07:24 | NUR ---
RECIVED REPORT FROM JOHN KRISHNAMURTHY EYY TO VENT FIO2 30% PEEP OF 5O2 SAT 96%OGT FEEDING MARIE TO GRAVITY DRAINAGE.
[2020-06-06] MEDS ORDERED: fentaNYL citrate 1 MG in NACL 0.9% 80 ML IV PRN (08:00)
[2020-06-06] MEDS: PANTOPRAZOLE 40 MG INJ VIAL IVP SCH (08:30)
[2020-06-06] MEDS: DEXAMETHASONE 10 MG/ML VIAL IVP SCH (08:30)
[2020-06-06] MEDS: carvediloL 6.25 MG TAB PO SCH (08:30)
[2020-06-06] MEDS: ASCORBIC ACID 500 MG/5 ML ORASYR PO SCH ×2 (08:31→20:04)
[2020-06-06] MEDS: ZINC SULF 220 MG CAP PO SCH ×2 (08:31→20:04)
[2020-06-06] MEDS: PROPOFOL 1000 MG/100 ML PREMIX 100 ML IV PRN ×2 (11:50→17:31)
--- NOTE | 2020-06-06 14:30 | NUR ---
START SEDATION VACATIONAT 1415PN ABOUT 1430 PT FULLY AWAKE AND ALERT. PT PUT ON BIPAP BY RT.
--- NOTE | 2020-06-06 14:30 | NUR ---
BEGAN SBT TRIAL ON PT PER RACH BRUNO. PT ON CPAP5 PS 14, TOLERATING WELL.
--- NOTE | 2020-06-06 16:00 | NUR ---
PT STATED SHE WAS TIRED AND WANTED TO TAKE A BREAK FROM WEANING. PLACED BACK ON AC MODE, TOLERATED WELL. WILL CONTINUE TO DO DAILY WEANING TRIALS.
--- NOTE | 2020-06-06 17:30 | NUR ---
B/P 171/64 HYDRALAZINE IV P GIVEN ORDERER.
[2020-06-06] MEDS: hydrALAZINE 20 MG/ML VIAL IVP PRN (18:11)
--- NOTE | 2020-06-06 19:20 | NUR ---
RECEIVED REPORT FROM DAYSFLFT NURSE FOR CONTINUITY OF CARE. PT SEDATED, PER MD ORDERS. PUPILS, 3MM, PERRL. RESPONDS TO NAME. ETT TO VENT WITH SETTINGS FOLLOWS: ACPC MODE 28%, RATE 20, PEEP 5. LUNGS DIMINISHED THROUGHOUT. SPO2 97%. +S1, S2 NOTED. SR WITH BBB ON MONITOR. OGT IN PLACE WITH JEVITY 1.2 @ 50 ML/HR RUNNING, FWF 115 Q6H. + TUBE PLACEMENT VERIFIED VIA AIR BOLUS. ZERO ML RESIDUAL ASPIRATED. BOWEL SOUNDS ACTIVE X4. ABD SOFT, NON-DISTENDED. MARIE IN PLACE DRAINING BRITTANI-COLORED URINE TO GRAVITY. SKIN WARM, DRY, AND INTACT. LOR PICC IN PLACE, PATENT AND NON-INFILTRATED, INFUSING PROPOFOL AND FENTANYL (SEE IV SPREADSHEET FOR RATES). LT AC PERIPHERAL IV, SALINE- LOCKED, PATENT. VAP ORAL CARE PROVIDED. SAFETY PRECAUTIONS IN PLACE WITH BED LOW AND LOCKED. HOB REMAINS >30 DEGREES. WILL CONT TO MONITOR .
--- NOTE | 2020-06-06 20:10 | NUR ---
PT RECEIVED SUPINE ON PC 30 +5, f20, 28% C/ 7.5 ETT SECURED @ 22CM AMBU @ BEDSIDE VENT PUGGED INTO RED OUTLET WILL CONTINUE TO MONITOR
[2020-06-07] VITALS (48 sets, daily range): BP systolic 91–167; BP diastolic 48–90
--- NOTE | 2020-06-07 | NUR ---
REPOSITIONED WITH PRESSURE AREAS OFFLOADED. VAP ORAL CARE PROVIDED. PT TOLERATED WELL.
[2020-06-07] MEDS: PROPOFOL 1000 MG/100 ML PREMIX 100 ML IV PRN ×4 (00:10→21:00)
[2020-06-07] MEDS: Z-GUARD PASTE TP SCH ×2 (00:41→12:34)
--- NOTE | 2020-06-07 04:00 | NUR ---
BED BATH PROVIDED WITH PRESSURE AREAS OFFLOADED. VAP ORAL CARE AND CATH CARE PROVIDED. SAFETY PRECAUTIONS IN PLACE WITH BED LOW AND LOCKED. WILL CONT TO MONITOR FOR CHANGES.
[2020-06-07 07:08] LABS: BASOPHILS % (AUTO) 0.1 % (0.0-2.0); EOSINOPHILS % (AUTO) 0.4 % (0.0-4.0); HEMATOCRIT 30.5 % (36-48); HEMOGLOBIN 10.5 g/dL (12.0-16.0); LYMPHOCYTES # (AUTO) 0.9 K/uL (2.5-16.5); LYMPHOCYTES % (AUTO) 10.2 % (20.5-51.1); MEAN CORPUSCULAR HEMOGLOBIN 31 pg (27-31); MEAN CORPUSCULAR HGB CONC 34 g/dL (33-37); MEAN CORPUSCULAR VOLUME 88.9 fL (80-94); MONOCYTES # (AUTO) 0.7 K/uL (0.8-1.0); MONOCYTES % (AUTO) 8.5 % (1.7-9.3); NEUTROPHILS # (AUTO) 6.7 K/uL (1.8-7.7); NEUTROPHILS % (AUTO) 80.8 % (42.2-75.2); PLATELET COUNT (AUTO) 131 K/uL (140-450); RED BLOOD CELL COUNT(AUTO) 3.43 MIL/uL (4.20-5.40); RED CELL DISTRIBUTION WIDTH 15.6 % (11.6-13.7); WHITE BLOOD COUNT (AUTO) 8.3 K/uL (4.8-10.8)
--- NOTE | 2020-06-07 07:25 | NUR ---
RECEIVED REPORT FORM DIRECTOR MEDICAL WRITING NURSE FOR CONTINUITY OF CARE. PT IN BED. RASS-3, FLACC 0, NO SOB, NO APPARENT DISTRESS. ETT TO VENT: AC/PC FIO2 28% TV 550 R 20 PEEP 5. ABD SOFT, NON-DISTENDED, NON-TENDER. WITH LOR PICC, RUNNING FENTANYL AT 0.5MCG, PROPOFOL 35MCG. MARIE INTACT AND PATENT DRAINING CLEAR YELLOW URINE. OGT INTACT RUNNING JEVITY 50CC/HR FWF 150 Q6H. SAFETY PRECAUTIONS IN PLACE. ISOLATION PRECAUTION OBSERVED. WILL CONT TO MONITOR.
[2020-06-07 07:29] LABS: ALBUMIN 2.5 g/dL (3.4-5.0); ANION GAP 11.4 (8-16); ASPARTATE AMINOTRANSFERASE 41 U/L (15-37); CARBON DIOXIDE 27.2 mmol/L (21-32); CHLORIDE 108 mmol/L (98-107); GLUCOSE 157 mg/dL (74-106); POTASSIUM 4.6 mmol/L (3.5-5.1); SODIUM SERUM 142 mmol/L (136-145); TOTAL BILIRUBIN 0.8 mg/dL (0.0-1.0); UREA NITROGEN, BLOOD 40 mg/dL (7-18)
[2020-06-07] MEDS: DEXAMETHASONE 10 MG/ML VIAL IVP SCH (08:18)
[2020-06-07] MEDS: amLODIPine 5 MG TAB PO SCH (08:18)
[2020-06-07] MEDS: PANTOPRAZOLE 40 MG INJ VIAL IVP SCH (08:18)
[2020-06-07] MEDS: ZINC SULF 220 MG CAP PO SCH ×2 (08:18→21:05)
[2020-06-07] MEDS: ASCORBIC ACID 500 MG/5 ML ORASYR PO SCH ×2 (09:00→21:05)
--- NOTE | 2020-06-07 09:00 | NUR ---
DUE MORNING MEDS GIVEN. ORAL CARE, MARIE CARE DONE. REPOSITIONED PT
--- NOTE | 2020-06-07 12:00 | NUR ---
CPAP TRIALS STARTED
--- NOTE | 2020-06-07 15:38 | NUR ---
06/07/20 RD FOLLOW UP COMPLETED PLEASE REFER TO NUTRITION ASSESSMENT UNDER CARE ACTIVITY FOR ESTIMATED NUTRITIONAL NEEDS. 1. CONTINUE JEVITY 1.2 @ 50 ML/HR X 24 HR -THIS PROVIDES 1440 KCAL AND 53 GM OF PROTEIN WHICH MEETS 100% OF ESTIMATED KCAL AND PROTEIN NEEDS/DAY. 2. CONTINUE FLUSH OF [address] TO FOLLOW-UP 2-3 DAYS, HIGH RISK REBECCA KOROMA RD
--- NOTE | 2020-06-07 16:14 | NUR ---
PLACED PT BACK ON PC AC, RR 28 AND VT 230-320, WILL CONTINUE TO MONITOR, RN AWARE.
--- NOTE | 2020-06-07 16:30 | NUR ---
PT WAS ABLE TOLERATE 3 HOURS OF CPAP TRIAL
--- NOTE | 2020-06-07 19:30 | NUR ---
RECIVED REPORT FROM ZUNILDA KRISHNAMURTHY, CONTINUATION OF CARE.
--- NOTE | 2020-06-07 19:32 | NUR ---
RECIVED PT RASS -2. RESPIRATIONS EVEN AND UNLABORED. SKIN IS WARM AND DRY TO TOUCH. PT AROUSABLE TO PAIN. PT FC IN PLACE. PT ABD IS SOFT, ROUND, AND NON-TENDER. BS PRESENT X 4 QUADRANTS. PT OGT FEEDING JEVITY RUNNING @ 50ML/HR. OGT FEEDING IN PLACE. PT PICCC LINE RUNNING MEDICATIONS CONTINOUSLY. PICC LINE PATENT. PT RX INFUSING: PROPOFOL 35MCG/KG/MIN, FENTANYL 0.5MCG/KG/HR. PT VENT SETTINGS: AC PC, 28% FiO2, PEEP 5, RATE:20. FC IN PLACE AND YELLOW CLEAR URINE NOTED IN BAG. BED IS LOCKED AND IN LOWEST POSTION. PT REMAINS ON TRANSLATOR. VSS. SEE DOCUMENT SPREAD SHEET FOR VS.
--- NOTE | 2020-06-07 22:43 | NUR ---
PT RESTING WITH EYES CLOSED. RASS -2. PT REPOSITIONED FOR COMFORT MEASURES. PT ABD IS SOFT, ROUND, AND NON-TENDER. OGT PATENT. PICC LINE PATENT. BED IS LOCKED IN LOWEST POSITION. PT ON TOP COATER. VSS.
[2020-06-08] VITALS (71 sets, daily range): BP systolic 108–152; BP diastolic 50–87
--- NOTE | 2020-06-08 00:32 | NUR ---
PT REPOSITIONED IN BED TO L SIDE. PT TOLERATED WELL. PT ORAL CARE DONE. PT REMAINS ON SENIOR FRONT END WEB DEVELOPER. VSS AT THIS TIME. PT PICC LINE PATENT. OGT REMAINS IN PLACE AND RESIDUAL @ 10CC. FC NOTED WITH 350 CC OF YELLOW URINE. BED LOCKED AND IN LOWEST POSITION. PT RASS -2. SEE VS DOCUMENT SPREAD SHEET FOR VS.
[2020-06-08] MEDS: Z-GUARD PASTE TP SCH ×2 (01:25→13:01)
--- NOTE | 2020-06-08 02:16 | NUR ---
PT RESTING WITH EYES CLOSED. RASS -2. PT REPOSITIONED FOR COMFORT MEASURES. PT ABD IS SOFT, ROUND, AND NON-TENDER. OGT PATENT. PICC LINE PATENT. BED IS LOCKED IN LOWEST POSITION. PT ON SOCIAL SERVICE DIRECTOR. VSS.
[2020-06-08] MEDS: PROPOFOL 1000 MG/100 ML PREMIX 100 ML IV PRN ×4 (02:30→22:26)
--- NOTE | 2020-06-08 04:06 | NUR ---
ORAL CARE PERFORMED, SUCTIONING PROVIDED NEEDED. RASS -2. PT REPOSITIONED FOR COMFORT MEASURES. PT OGT PATENT. 15CC RESIDUAL NOTED. PICC LINE PATENT. BED IS LOCKED IN LOWEST POSITION. PT ON PAPER GLUING OPERATOR. VSS.
[2020-06-08 05:56] LABS: BASOPHILS % (AUTO) 0.1 % (0.0-2.0); EOSINOPHILS # (AUTO) 0.1 K/uL (0-0.4); EOSINOPHILS % (AUTO) 1.1 % (0.0-4.0); HEMATOCRIT 27.3 % (36-48); HEMOGLOBIN 9.1 g/dL (12.0-16.0); LYMPHOCYTES # (AUTO) 0.8 K/uL (2.5-16.5); LYMPHOCYTES % (AUTO) 10.9 % (20.5-51.1); MEAN CORPUSCULAR HEMOGLOBIN 30 pg (27-31); MEAN CORPUSCULAR HGB CONC 33 g/dL (33-37); MEAN CORPUSCULAR VOLUME 89.6 fL (80-94); MONOCYTES # (AUTO) 0.7 K/uL (0.8-1.0); MONOCYTES % (AUTO) 9.6 % (1.7-9.3); NEUTROPHILS % (AUTO) 78.3 % (42.2-75.2); PLATELET COUNT (AUTO) 104 K/uL (140-450); RED BLOOD CELL COUNT(AUTO) 3.05 MIL/uL (4.20-5.40); RED CELL DISTRIBUTION WIDTH 15.7 % (11.6-13.7); WHITE BLOOD COUNT (AUTO) 7.7 K/uL (4.8-10.8)
[2020-06-08] MEDS: fentaNYL citrate - 50mL vial 2.5 MG in NACL 0.9% 200 ML IV PRN ×2 (06:00→19:21)
--- NOTE | 2020-06-08 06:13 | NUR ---
PT RESTING WITH EYES CLOSED. RASS -2. PT REPOSITIONED FOR COMFORT MEASURES. PT ABD IS SOFT, ROUND, AND NON-TENDER. OGT PATENT. PICC LINE PATENT. BED IS LOCKED IN LOWEST POSITION. PT ON VIOLIN TUTOR. VSS.
[2020-06-08 06:18] LABS: ALBUMIN 2.2 g/dL (3.4-5.0); ANION GAP 11.2 (8-16); ASPARTATE AMINOTRANSFERASE 34 U/L (15-37); CARBON DIOXIDE 27.1 mmol/L (21-32); CHLORIDE 109 mmol/L (98-107); CREATININE 0.9 mg/dL (0.6-1.3); GLUCOSE 129 mg/dL (74-106); POTASSIUM 4.3 mmol/L (3.5-5.1); SODIUM SERUM 143 mmol/L (136-145); TOTAL BILIRUBIN 0.7 mg/dL (0.0-1.0); UREA NITROGEN, BLOOD 41 mg/dL (7-18)
--- NOTE | 2020-06-08 07:20 | NUR ---
REPORT GIVEN TO ZUNILDA KRISHNAMURTHY. TRANSFER OF CARE.
--- NOTE | 2020-06-08 07:29 | NUR ---
RECEIVED REPORT FORM SERVICE MANAGER NURSE FOR CONTINUITY OF CARE. PT IN BED. RASS-2, FLACC 0, NO SOB, NO APPARENT DISTRESS. ETT TO VENT: AC/PC FIO2 28% TV 550 R 20 PEEP 5. WITH LOR PICC, RUNNING FENTANYL AT 0.5MCG, PROPOFOL 35MCG. MARIE INTACT AND PATENT DRAINING CLEAR DARK YELLOW URINE. OGT INTACT RUNNING JEVITY 50CC/HR FWF 150 Q6H. SAFETY PRECAUTIONS IN PLACE. ISOLATION PRECAUTION OBSERVED. WILL CONT TO MONITOR.
--- NOTE | 2020-06-08 08:13 | NUR ---
STARTED CPAP TRIALS
--- NOTE | 2020-06-08 09:15 | NUR ---
DUE MORNING MEDS GIVEN. MARIE CARE, ORAL CARE DONE, REPOSITIONED PT
[2020-06-08] MEDS: PANTOPRAZOLE 40 MG INJ VIAL IVP SCH (09:27)
[2020-06-08] MEDS: DEXAMETHASONE 10 MG/ML VIAL IVP SCH (09:27)
[2020-06-08] MEDS: amLODIPine 5 MG TAB PO SCH (09:27)
[2020-06-08] MEDS: ASCORBIC ACID 500 MG/5 ML ORASYR PO SCH ×2 (09:28→20:27)
[2020-06-08] MEDS: ZINC SULF 220 MG CAP PO SCH ×2 (09:28→20:28)
--- NOTE | 2020-06-08 14:00 | NUR ---
PT WAS ABLE TOLERATE 6 HOURS OF CPAP TRIAL. NO EPISODES OF DESATURATION
--- NOTE | 2020-06-08 17:30 | NUR ---
RASS-1, NO APPARENT DISTRESS, FLACC 0. GARRET CARE DONE, REPOSITIONED PT
--- NOTE | 2020-06-08 19:30 | NUR ---
RECEIVED REP[ORT FROM DAY SHIFT,PATIENT IS ORALLY VENTED WITH ETT#7.5/22 LIP LEVEL ON AC/PC MODE RATE OF 20 WITH 28% [id number] IS SEDATED WITH FENTANYL AND PROPOFOLIN FUSING THRU HER RIGHTN UPPER ARM PICC LINE.PATIENT IS IN SINUS RYTHM,PATIENT BREATHE SOUD AUDIBLE AND CHEST EXPANSION EQUAL BILATERALLY.PATIENT IS IN SINUS RYTHM,AND SHE IS SATURATING WELL WITH THIS PRESENT VENT SETTING.PATIENT IS ON CONTINOUS OGT FEEDING WITH JEVITY AT 50CC/HR WITH WATER FLUSH AT 115CC EVERY 6 HOURS.PATIENT IS OPENING HER EYES WITH STIMULATION SHE TRIED TO SQUEEZE MY HAND ON COMMAND THO EXTREMELE WEAK,HER EYES ARE OPEN SHE TRIED TO MOVE HER TOES WHEN ASKED.MARIE CATH IN PLACE URINE IS CLEAR PATIENT IS IN NO DISTRESS AT THIS TIME AND SHE APPEARS COMFORTABLE.
--- NOTE | 2020-06-08 20:06 | NUR ---
RECEIVED PATIENT FROM AM SHIFT. PATIENT WAS SEEN AND ASSESSED. FOUND PATIENT IN SUPINE POSITIONED. PATIENT IS INTUBATED WITH ETT SIZE 7.5 AND SECURED WITH ANCHOR-FAST @ 22 cm. PATIENT IS ON VENT SETTINGS: AC/PC RR 20, PIP 30, PEEP 5, FiO2 28% WITH SPO2 OF 97%. VENT IS PLUGGED IN RED OUTLET. ALARMS SET AND AUDIBLE TO ENVIRONMENT. SUCTIONED SCANT AMOUNT OF YELLOW THICK SECRETIONS FROM ETT. AIRWAY IS PATENT. AUSCULTATION REVEALS BILATERAL RALES BREATH SOUNDS ON BOTH UPPER AND LOWER LOBES. PATIENT IS IN NO APPARENT RESPIRATORY DISTRESS AT THIS TIME. WILL CONTINUE TO MONITOR PATIENT.
[2020-06-09] VITALS (67 sets, daily range): BP systolic 105–166; BP diastolic 51–100
[2020-06-09] MEDS: Z-GUARD PASTE TP SCH ×2 (01:00→13:00)
[2020-06-09] MEDS: PROPOFOL 1000 MG/100 ML PREMIX 100 ML IV PRN ×3 (05:48→20:42)
[2020-06-09 06:30] LABS: BASOPHILS % (AUTO) 0.1 % (0.0-2.0); EOSINOPHILS # (AUTO) 0.2 K/uL (0-0.4); EOSINOPHILS % (AUTO) 2.1 % (0.0-4.0); HEMOGLOBIN 9.7 g/dL (12.0-16.0); LYMPHOCYTES # (AUTO) 0.8 K/uL (2.5-16.5); LYMPHOCYTES % (AUTO) 8.5 % (20.5-51.1); MEAN CORPUSCULAR HEMOGLOBIN 30 pg (27-31); MEAN CORPUSCULAR HGB CONC 34 g/dL (33-37); MONOCYTES # (AUTO) 0.9 K/uL (0.8-1.0); MONOCYTES % (AUTO) 9.3 % (1.7-9.3); NEUTROPHILS # (AUTO) 7.6 K/uL (1.8-7.7); PLATELET COUNT (AUTO) 135 K/uL (140-450); RED BLOOD CELL COUNT(AUTO) 3.23 MIL/uL (4.20-5.40); RED CELL DISTRIBUTION WIDTH 15.7 % (11.6-13.7); WHITE BLOOD COUNT (AUTO) 9.5 K/uL (4.8-10.8)
--- NOTE | 2020-06-09 07:15 | NUR ---
[facility] PT AC/PC MODE RATE OF 20 WITH 28% FIO2. PATIENT IS SEDATED WITH FENTANYL AND PROPOFOL INFUSING IN RIGHT UPPER ARM PICC LINE DOULE LUMEN WITH A DRY WEIGHT OF 79KG. PATIENT IS IN SINUS RHYTHM,PATIENT BREATHE SOUD AUDIBLE AND CHEST EXPANSION EQUAL BILATERALLY. SATURATING WELL WITH THIS PRESENT VENT SETTING WITH NO SOB OR RESPIRATORY DISTRESS. PATIENT IS ON CONTINOUS OGT FEEDING WITH JEVITY AT 50CC/HR WITH WATER FLUSH AT 115CC EVERY 6 HOURS. PATIENT IS OPENING HER EYES WITH STIMULATION. MARIE CATH IN PLACE URINE IS CLEAR. SAFETY MEASURES IN PLACE. WILL CONTINUE TO MONITOR
[2020-06-09 07:18] LABS: ALBUMIN 2.4 g/dL (3.4-5.0); ANION GAP 9.2 (8-16); ASPARTATE AMINOTRANSFERASE 30 U/L (15-37); CARBON DIOXIDE 27.7 mmol/L (21-32); CHLORIDE 108 mmol/L (98-107); CREATININE 0.9 mg/dL (0.6-1.3); GLUCOSE 110 mg/dL (74-106); POTASSIUM 4.9 mmol/L (3.5-5.1); SODIUM SERUM 140 mmol/L (136-145); TOTAL BILIRUBIN 0.7 mg/dL (0.0-1.0); UREA NITROGEN, BLOOD 42 mg/dL (7-18)
[2020-06-09] MEDS: DEXAMETHASONE 10 MG/ML VIAL IVP SCH (09:18)
[2020-06-09] MEDS: PANTOPRAZOLE 40 MG INJ VIAL IVP SCH (09:19)
[2020-06-09] MEDS: amLODIPine 5 MG TAB PO SCH (09:20)
[2020-06-09] MEDS: ZINC SULF 220 MG CAP PO SCH ×2 (09:21→20:48)
[2020-06-09] MEDS: ASCORBIC ACID 500 MG/5 ML ORASYR PO SCH ×2 (09:21→20:47)
--- NOTE | 2020-06-09 09:31 | NUR ---
ADMINISTERED SCHED MED PRESCRIBED PER MD ORDER. PT TOLERATED WELL. NO SIGNS OF DISTRESS NOTED. SAFETY MEASURES IN PLACE. WILL CONTINUE TO MONITOR
--- NOTE | 2020-06-09 11:15 | NUR ---
PT RESTING IN BED. FLACC 0. NO SIGNS OF RESPIRATORY DISTRESS NOTED. SAFETY MEASURES IN PLACE. WILL CONTINUE TO MONITOR
--- NOTE | 2020-06-09 14:30 | NUR ---
HOURLY ROUNDING. PT RESTING IN BED. FLACC 0. NO SIGNS OF RESPIRATORY DISTRESS NOTED. SAFETY MEASURES IN PLACE. WILL CONTINUE TO MONITOR
--- NOTE | 2020-06-09 16:45 | NUR ---
PT RESTING IN BED. FLACC 0. NO SIGNS OF RESPIRATORY DISTRESS NOTED. SAFETY MEASURES IN PLACE. WILL CONTINUE TO MONITOR
--- NOTE | 2020-06-09 19:15 | NUR ---
ENDORSED TO NIGHTSHIFT NURSE FOR CONTINUITY OF CARE.
--- NOTE | 2020-06-09 19:30 | NUR ---
RECEIVED REPORT FROM DAY SHIFT ,PATIENT IS ORALLYINTUBATED AND SEDATED WITH PROOFOL AND FENTANYL DRIP INFUSING THRU HER RIGHT UPPER ARM PICC.PATIENT IS ORALL INTUBATED WITH ETT SIZE 7,5 AND LIP LEVEL AT 22.PATIENT WITH COURSE RALES ON EXPIRATION WITH CHEST EXPANSIO EQUAL BILATERALLY,PATIENT IS AWAKE MAKES EYE CONATXT ,IN NO ACUTE DIDTRESS.RIVERS AND LAKES LEVERMAN SHOWS SINUS RYTHM.OGT IN PLACE ON CONTINOUS FEEDING WITH JEVITY AAT 50CC/HR AND WATER FLUSH 115 CC EVERY [address] URINE OUTPUT IS GOOD. PATIENT APPEARS COMFORTABLE AT THIS TIME IN NO ACUTE DISTRESS.
[2020-06-10] VITALS (65 sets, daily range): BP systolic 99–183; BP diastolic 51–91
[2020-06-10] MEDS: Z-GUARD PASTE TP SCH (01:30)
[2020-06-10] MEDS: PROPOFOL 1000 MG/100 ML PREMIX 100 ML IV PRN (04:24)
[2020-06-10 07:13] LABS: EOSINOPHILS # (AUTO) 0.1 K/uL (0-0.4); HEMATOCRIT 28.3 % (36-48); HEMOGLOBIN 9.5 g/dL (12.0-16.0); LYMPHOCYTES # (AUTO) 0.7 K/uL (2.5-16.5); LYMPHOCYTES % (AUTO) 7.2 % (20.5-51.1); MEAN CORPUSCULAR HEMOGLOBIN 30 pg (27-31); MEAN CORPUSCULAR HGB CONC 34 g/dL (33-37); MEAN CORPUSCULAR VOLUME 89.8 fL (80-94); MONOCYTES # (AUTO) 0.8 K/uL (0.8-1.0); MONOCYTES % (AUTO) 8.7 % (1.7-9.3); NEUTROPHILS # (AUTO) 7.6 K/uL (1.8-7.7); NEUTROPHILS % (AUTO) 83.1 % (42.2-75.2); PLATELET COUNT (AUTO) 125 K/uL (140-450); RED BLOOD CELL COUNT(AUTO) 3.15 MIL/uL (4.20-5.40); RED CELL DISTRIBUTION WIDTH 15.8 % (11.6-13.7); WHITE BLOOD COUNT (AUTO) 9.2 K/uL (4.8-10.8)
[2020-06-10 07:24] LABS: ALBUMIN 2.4 g/dL (3.4-5.0); ANION GAP 11.1 (8-16); ASPARTATE AMINOTRANSFERASE 25 U/L (15-37); CARBON DIOXIDE 27.2 mmol/L (21-32); CHLORIDE 108 mmol/L (98-107); CREATININE 0.8 mg/dL (0.6-1.3); GLUCOSE 125 mg/dL (74-106); POTASSIUM 5.3 mmol/L (3.5-5.1); SODIUM SERUM 141 mmol/L (136-145); TOTAL BILIRUBIN 0.7 mg/dL (0.0-1.0); UREA NITROGEN, BLOOD 42 mg/dL (7-18)
--- NOTE | 2020-06-10 07:30 | NUR ---
RECEIVED REPORT FROM GEOVANNA SUBASSEMBLY SUPERVISOR PT. IS TRACH TO VENT IV HAS RTTUA PICC LINE INFUSING PROPOFOL AT 30 MCG/KG/MIN , FENTANYL AT O.5 MCG.KG/HB HAS OGT FEEDING WITH JAVITY 1.2 AT 50 ML/H ,WATER FLUSH 115 ML/6HR. MARIE CATH DRAIN LIGHT BRITTANI URINE.
[2020-06-10] MEDS: ASCORBIC ACID 500 MG/5 ML ORASYR PO SCH ×2 (09:00→22:19)
[2020-06-10] MEDS: ZINC SULF 220 MG CAP PO SCH ×2 (09:00→22:00)
[2020-06-10] MEDS: amLODIPine 5 MG TAB PO SCH (09:00)
[2020-06-10] MEDS: PANTOPRAZOLE 40 MG INJ VIAL IVP SCH (09:00)
[2020-06-10] MEDS: DEXAMETHASONE 10 MG/ML VIAL IVP SCH (09:00)
--- NOTE | 2020-06-10 09:30 | NUR ---
SEEN BY ELIS WALLACE NO ORDER CHANGED
--- NOTE | 2020-06-10 10:35 | NUR ---
SEEN BY DR. TRUJILLO AT [facility] NO ORDER CHANGE AT THIS TIME.
--- NOTE | 2020-06-10 10:38 | NUR ---
06/10/20 RD FOLLOW UP COMPLETED. PLEASE REFER TO NUTRITION ASSESSMENT UNDER CARE ACTIVITY FOR ESTIMATED NUTRITIONAL NEEDS. SPECIFIC INTERVENTIONS AND RECOMMENDATIONS 1.RECOMMEND CONTINUE JEVITY 1.2 @ 50 ML/HR X 24 HR. THIS WILL PROVIDE 1440 KCAL AND 67 GM OF PROTEIN WHICH MEETS 100% OF ESTIMATED KCAL AND PROTEIN NEEDS 2. RECOMMEND CONTINUE FREE WATER FLUSH OF 115 ML Q6H 3. CONTINUE VITAMIN C AND ZINC SUPPLEMENTATION 4. RD TO FOLLOW-UP 2-3 DAYS, HIGH RISK SAVITA TY RD
--- NOTE | 2020-06-10 13:00 | NUR ---
REPOSITIO,. ORAL CARE GIVEN ,OGT FEEDING TOLERATED
--- NOTE | 2020-06-10 19:30 | NUR ---
REPORT GIVE TO ELLEN KRISHNAMURTHY REGISTER NURSE,.
--- NOTE | 2020-06-10 20:00 | NUR ---
PATIENT WAS ACCEPTED AND ASSESS DONE , PATIENT FULLY AWAKE AND RESPOND TO ALL COMMANDS , ON DIPRIVAN AND FENTANYL DRIP FOR SEDATION ,,PATIENT IS AWAKE , WILL WAVE AT YOU FOLLOW COMMANDS NEED TO EXTUBATE THE PATIENT , ON TUBE FEEDING, TOLERATE WELL WITH WATER FLUSH , STABLE , NOTICE PATIENT IS OBESITY AND HAS 3 + edema ON HANDS WILL ELEVATE ON PILLOW , ORAL CARE GIVEN SMALL AMOUNT OF SECRETION FROM THE MOUTH , VERY LITTLE FROM THE LUNG , THE LARGE AMOUNT OF THE SECRETION WAS FROM THE ORAL CAVITY , PATIENT CAN MOVE SELF WHEN ASK TO DO ,STABLE PLAN TO EXTUBATE THE PATIENT , HELP DRY OF SOME SECRETION , STABLE NOTICE ABDOMEN IS DISTENDED , PASSING LOTS OF FLATUS NO BM ALSO PATIENT WAS HAVING PAIN HEART RATE WOULD GO UP 110, FACIAL EXPRESS IN PAIN UNABLE TO EXPRESS HER SELF , WILL CONTINUED MONITOR THE PATIENT CLOSELY
--- NOTE | 2020-06-10 22:00 | NUR ---
PATIENT REMAIN AWAKE HAS AN MARIE, URINE OUTPUT MODERN AMOUNT , PATIENT MAY BE IN PAIN DUE TO CONSTIPATION .WAS TRYING TO MOVE HER BOWEL , STABLE
[2020-06-11] VITALS (42 sets, daily range): BP systolic 108–169; BP diastolic 46–88
--- NOTE | 2020-06-11 | NUR ---
PATIENT HAD CLOSED EYES FOR AN FEW SECOND NOW AWAKE LAYING IN BED , STABLE ,HAS NO TEMP 97.7 ,RESTING, NEED PAIN MEDICATION WILL CHECK IN THE AM , STABLE
[2020-06-11] MEDS: Z-GUARD PASTE TP SCH ×2 (01:00→12:25)
[2020-06-11] MEDS: PROPOFOL 1000 MG/100 ML PREMIX 100 ML IV PRN ×4 (01:53→22:48)
--- NOTE | 2020-06-11 02:00 | NUR ---
PATIENT IS RESTING WILL CONTINUED WITH PLAN OF CARE, STABLE
--- NOTE | 2020-06-11 04:00 | NUR ---
AM CARE GIVEN , PASSING FLATUS ABDOMEN DISTENDED PATIENT WILL HELP IN TURNING WILL TRIED NOTICE NO SKIN BREAKDOWN STABLE TUBE FEEDING REMAIN AND PATENT , STABLE
--- NOTE | 2020-06-11 06:00 | NUR ---
NO CHANGE WITH CONDITION WILL CONTINUED WITH PLAN OF CARE MAY TRIED TO EXTUBATE SEND PATIENT TO FLOOR POSITIVE FOR COVID 19 , STABLE
[2020-06-11] MEDS: fentaNYL citrate - 50mL vial 2.5 MG in NACL 0.9% 200 ML IV PRN ×2 (06:28→15:46)
[2020-06-11 07:09] LABS: BASOPHILS % (AUTO) 0.2 % (0.0-2.0); EOSINOPHILS # (AUTO) 0.1 K/uL (0-0.4); EOSINOPHILS % (AUTO) 0.5 % (0.0-4.0); HEMATOCRIT 29.7 % (36-48); HEMOGLOBIN 9.8 g/dL (12.0-16.0); LYMPHOCYTES # (AUTO) 0.8 K/uL (2.5-16.5); MEAN CORPUSCULAR HEMOGLOBIN 30 pg (27-31); MEAN CORPUSCULAR HGB CONC 33 g/dL (33-37); MEAN CORPUSCULAR VOLUME 89.3 fL (80-94); MONOCYTES # (AUTO) 1.1 K/uL (0.8-1.0); MONOCYTES % (AUTO) 9.2 % (1.7-9.3); NEUTROPHILS # (AUTO) 9.8 K/uL (1.8-7.7); PLATELET COUNT (AUTO) 160 K/uL (140-450); RED BLOOD CELL COUNT(AUTO) 3.33 MIL/uL (4.20-5.40); RED CELL DISTRIBUTION WIDTH 15.3 % (11.6-13.7); WHITE BLOOD COUNT (AUTO) 11.8 K/uL (4.8-10.8)
[2020-06-11 07:12] LABS: ALBUMIN 2.6 g/dL (3.4-5.0); ANION GAP 12.9 (8-16); ASPARTATE AMINOTRANSFERASE 40 U/L (15-37); CARBON DIOXIDE 25.9 mmol/L (21-32); CHLORIDE 107 mmol/L (98-107); CREATININE 0.9 mg/dL (0.6-1.3); GLUCOSE 103 mg/dL (74-106); POTASSIUM 4.8 mmol/L (3.5-5.1); SODIUM SERUM 141 mmol/L (136-145); TOTAL BILIRUBIN 1.1 mg/dL (0.0-1.0); UREA NITROGEN, BLOOD 41 mg/dL (7-18)
--- NOTE | 2020-06-11 07:30 | NUR ---
RECEIVED REPORT FROM DESKTOP SUPPORT ASSOCIATE RN. POC DISCUSSED. PATIENT IS ALERT, EYES OPEN. NODS TO AFFIRMATIVE ANSWER. ETT TO VENT. ORAL CARE GIVEN, SUCTIONING DONE. OBTAINED THIN MOD SECRETIONS. KEPT PT ON SUPINE POSITION. ON CONTINUOUS FENTANYL AND PROPOFOL DRIPS. LOR PICC PATENT. ON OGT FEEDING, TOLERATED WELL WITH NO RESIDUAL NOTED. BUE PLUS 2 EDEMA NOTED, KEPT ELEVATED WITH PILLOW. F/C IN PLACE DRAINING CLEAR YELLOW URINE. PALPABLE PULSES TO DISTAL EXTREMITIES. WILL CONTINUE TO MONITOR.
[2020-06-11 07:43] LABS: NEUTROPHILS % (AUTO) 83.4 % (42.2-75.2)
[2020-06-11 07:44] LABS: LYMPHOCYTES % (AUTO) 6.7 % (20.5-51.1)
[2020-06-11] MEDS: ZINC SULF 220 MG CAP PO SCH ×2 (09:17→21:39)
[2020-06-11] MEDS: ASCORBIC ACID 500 MG/5 ML ORASYR PO SCH ×2 (09:17→21:39)
[2020-06-11] MEDS: PANTOPRAZOLE 40 MG INJ VIAL IVP SCH (09:17)
[2020-06-11] MEDS: amLODIPine 5 MG TAB PO SCH (09:18)
[2020-06-11] MEDS: DEXAMETHASONE 10 MG/ML VIAL IVP SCH (09:18)
--- NOTE | 2020-06-11 10:55 | NUR ---
RT AT BEDSIDE. PLACED PT TO CPAP10 WITH FIO2 @ 28%. PT TOLERATED WELL. OBTAINED 95% O2 SAT.
--- NOTE | 2020-06-11 16:00 | NUR ---
PROVIDED PM CARE. NO S/S OF RESPIRATORY DISTRESS. PT TOLERATED WELL WITH TUBE FEEDING/ PT TURNED TO SIDE.
--- NOTE | 2020-06-11 19:15 | NUR ---
ENDORSED TO WARM IN WORKER RN. POC DISCUSSED. NO CHANGE OF CONDITION.
--- NOTE | 2020-06-11 19:30 | NUR ---
RECEIVED REPORT FROM DAY SHIFT PATIENT IS ORALL VENTED AND SEDATE WITH PROPOFOL AT 30 MCG/KG/MIN AND FENTANYL DRIP.PATIENT VENT SETTING IS AC 20 WITH 24 5 FIO2 AND PEEP OF 5, PATIENT IS SATURATING 96-95%.PATIENT IS AWAKE EYES ARE OPEN SHE TRIES TO FOLLOW SIMPLE COMMAND BY SQUEEZE OF BOTH HANDS BUT THEY ARE VERY EXTREMELY WEAK EXTREMITIES ARE CHRISTIAN STIFF.PATIENT OGT FEEDING WITH VITAL AF AT 50CC/HR AND PATIENT IS TOLERATIN
--- NOTE | 2020-06-11 20:38 | NUR ---
REMAIN SINUS RYTHM.PATIENT WITH MARIE CATH IN PLACE URINE OUTPUT IS GOOD.
[2020-06-12] VITALS (41 sets, daily range): BP systolic 109–170; BP diastolic 50–100
[2020-06-12] MEDS: Z-GUARD PASTE TP SCH ×2 (01:00→13:37)
[2020-06-12] MEDS: PROPOFOL 1000 MG/100 ML PREMIX 100 ML IV PRN (05:44)
--- NOTE | 2020-06-12 07:15 | NUR ---
RECEIVED HANDOFF FROM STUDENT DEVELOPMENT ADVISOR RN. PT IS RASS -1. PT IS ON ETT TO VENT WITH FIO2 24%, R 20, PEEP 5. PT HAS LOR PICC. FENTANYL IS RUNNING AT 0.5 MCG/KG/HR, PROPOFOL AT 30 MCG/KG/HR. WEIGHT IS 79 KG. PT IS ON JEVITY AT 50 ML/HR WITH 115 ML Q 4 HR. PT HAS MARIE IN PLACE. PT IS SR ON THE MONITOR AT THIS TIME. WILL CONTINUE TO MONITOR.
[2020-06-12] MEDS: DEXAMETHASONE 10 MG/ML VIAL IVP SCH (09:55)
[2020-06-12] MEDS: PANTOPRAZOLE 40 MG INJ VIAL IVP SCH (09:55)
[2020-06-12] MEDS: ASCORBIC ACID 500 MG/5 ML ORASYR PO SCH ×2 (09:55→21:24)
[2020-06-12] MEDS: amLODIPine 5 MG TAB PO SCH (09:55)
[2020-06-12] MEDS: ZINC SULF 220 MG CAP PO SCH ×2 (09:55→21:24)
--- NOTE | 2020-06-12 10:00 | NUR ---
MEDICATIONS ADMINISTERED PER ORDER. PT TOLERATED WELL 5 ML RESIDUAL FROM TUBE FEED. TEMPERATURE 98.9 TEMPORALLY. WILL CONTINUE TO MONITOR. VAP ORAL CARE, CHG BATH AND MARIE CARE PROVIDED.
--- NOTE | 2020-06-12 14:40 | NUR ---
PT EXTUBATED AND PLACED ON 3L NC. SAT 96%. NO RESPIRATORY DISTRESS NOTED. WILL CONTINUE TO MONITOR.
--- NOTE | 2020-06-12 14:40 | NUR ---
PT EXTUBATED BY RT MARK. PT TOLERATING WELL. SATTING 94% NOW ON 3 L NC.
[2020-06-12] MEDS: ACETAMINOPHEN 325 MG TAB PO PRN (15:00)
--- NOTE | 2020-06-12 15:00 | NUR ---
PT FELT HOT UPON PALPATION, TOOK TEMPERATURE TO FIND THAT IT WAS 101.5. ADMINISTERED PRN TYLENOL AND GAVE COOLING BATH.
--- NOTE | 2020-06-12 16:00 | NUR ---
TEMPERATURE 99.5. ORAL CARE PROVIDED.
--- NOTE | 2020-06-12 18:00 | NUR ---
900 CLEAR BRITTANI URINE FROM MARIE CATH
--- NOTE | 2020-06-12 19:15 | NUR ---
HANDOFF GIVEN TO POULTRY DEBEAKER RN FOR CONTINUITY OF CARE
--- NOTE | 2020-06-12 20:00 | NUR ---
REPORT RECEIVED FROM DAY SHIFT RN. AWAKE AND ALERT. SPONTANEOUS EYE OPENING. PT ON NASAL CANNULA @ 3L. RESPIRATION EVEN AND UNLABORED. CHEST EXPANSION SYMMETRICAL. SKIN WARM AND DRY. ORAL MUCOSA PINK AND MOIST. RIGHT UPPER ARM PICC. ASYMPTOMATIC, PATENT AND INTACT. NGT IN PLACE, PATENT AND INTACT. JEVITY 1.2 @ 50MLS/HR WITH FWF 115 EVERY 6HRS. MARIE CATHETER DRAINING TO GRAVITY. BED IN LOWEST POSITION, SIDE RAILS UP, HOB 30 DEGREES. ISOLATION PRECAUTION MAINTAINED. WILL CONTINUE TO MONITOR.
[2020-06-13] VITALS (35 sets, daily range): BP systolic 62–197; BP diastolic 20–103
--- NOTE | 2020-06-13 | NUR ---
TURNED AND REPOSITIONED PT. PRESSURE AREAS OFF LOADED. WILL CONTINUE TO MONITOR.
[2020-06-13] MEDS: Z-GUARD PASTE TP SCH ×2 (01:00→13:00)
[2020-06-13] MEDS: hydrALAZINE 20 MG/ML VIAL IVP PRN (03:15)
--- NOTE | 2020-06-13 03:40 | NUR ---
0330 placed patient on bipap ipap14 epap7 rr 16 100% fio2. patient in respiratory distress. patient rr 45 and hr 133. bp increased. pt very tachypneic .
--- NOTE | 2020-06-13 04:18 | NUR ---
PAGED DR. TREJO AT THIS TIME. PT'S HAVING EPISODES OF ST/SVT WITH OCCASIONAL PVC'S. MADE AWARE THAT PT IS ON BIPAP NOW. MD ORDERED ATIVAN 0.5MG IV Q8 AND METOPROLOL 2.5MG IV IF HR IS ABOVE 120'S. WILL CONTINUE TO MONITOR.
[2020-06-13] MEDS ORDERED: METOPROLOL 5 MG/5 ML VIAL IVP PRN (04:30)
[2020-06-13] MEDS ORDERED: LORazepam 2 MG/ML VIAL IVP PRN (04:30)
--- NOTE | 2020-06-13 04:44 | NUR ---
PRN ATIVAN GIVEN ORDERED. WILL CONTINUE TO MONITOR PT.
--- NOTE | 2020-06-13 06:15 | NUR ---
PT RESTING IN BED. VITAL SIGNS ARE FOLLOWS: BP: 129/54 HR: 105 RR: 34 SPO2 87%. PT ON BIPAP. WILL CONTINUE TO MONITOR.
--- NOTE | 2020-06-13 06:30 | NUR ---
DR. TRUJILLO IN THE UNIT. UPDATED ABOUT PT CONDITION.
[2020-06-13] MEDS: amLODIPine 5 MG TAB PO SCH (08:09)
[2020-06-13] MEDS: ZINC SULF 220 MG CAP PO SCH ×2 (08:09→19:53)
[2020-06-13] MEDS: ASCORBIC ACID 500 MG/5 ML ORASYR PO SCH ×2 (08:09→19:53)
[2020-06-13] MEDS: PANTOPRAZOLE 40 MG INJ VIAL IVP SCH (08:09)
[2020-06-13] MEDS: DEXAMETHASONE 10 MG/ML VIAL IVP SCH (08:10)
[2020-06-13] MEDS: ACETAMINOPHEN 325 MG TAB PO PRN (08:10)
[2020-06-13] MEDS ORDERED: NOREPINEPHRINE 8 MG in DEXTROSE 5% 250 ML IV PRN (09:35)
--- NOTE | 2020-06-13 09:36 | NUR ---
CALLED DAUGHTER DONYA FOR CONDITION UPDATE. DR TRUJILLO NOTIFIED.
--- NOTE | 2020-06-13 09:37 | NUR ---
DR TRUJILLO NOTIFIED OF LOW BP 62/20, ORDER FOR LEVOPHED, ABG.
--- NOTE | 2020-06-13 09:40 | NUR ---
LEVOPHED STARTED PER ORDER FOR HYPOTENTION
[2020-06-13] MEDS ORDERED: FUROSEMIDE 40 MG/4 ML VIAL IVP SCH (10:30)
[2020-06-13 12:00] LABS: ALBUMIN 2.3 g/dL (3.4-5.0); ANION GAP 11.7 (8-16); ASPARTATE AMINOTRANSFERASE 120 U/L (15-37); CARBON DIOXIDE 28.1 mmol/L (21-32); CHLORIDE 108 mmol/L (98-107); CREATININE 1.6 mg/dL (0.6-1.3); GLUCOSE 108 mg/dL (74-106); POTASSIUM 5.8 mmol/L (3.5-5.1); SODIUM SERUM 142 mmol/L (136-145); TOTAL BILIRUBIN 1.4 mg/dL (0.0-1.0); UREA NITROGEN, BLOOD 46 mg/dL (7-18)
--- NOTE | 2020-06-13 12:04 | NUR ---
SPOKE WITH CASSANDRA WALLACE CONCERNING ABG RESULTS AND DR. TRUJILLO ORDERED CHANGES TO BE MADE TO BIPAP RR 20 AND TO DO ABG IN TWO HOURS RT MARK NOTIFIED OF CHANGES TO BE MADE
--- NOTE | 2020-06-13 14:17 | NUR ---
06/13/20 RD FOLLOW UP COMPLETED PLEASE REFER TO NUTRITION ASSESSMENT UNDER CARE ACTIVITY FOR ESTIMATED NUTRITIONAL NEEDS. 1. IF PATIENTS RESPIRATORY FUNCTION WORSENS AND PT IS INTUBATED AGAIN, CONTINUE JEVITY 1.2 @ 50 ML/HR. FLUSH OF 115 ML Q6H -THIS PROVIDES 1440 KCAL AND 53 GM OF PROTEIN WHICH MEETS 100% OF ESTIMATED KCAL AND PROTEIN NEEDS/DAY. 2. IF RESPIRATORY STATUS DOES NOT CHANGE AND CONTINUES TO BE ON BIPAP, CONSIDER TPN 3. RD TO FOLLOW-UP 2-3 DAYS, HIGH RISK REBECCA KOROMA RD
[2020-06-13 14:24] LABS: HEMOGLOBIN 9.1 g/dL (12.0-16.0); MEAN CORPUSCULAR HEMOGLOBIN 29 pg (27-31); MEAN CORPUSCULAR HGB CONC 31 g/dL (33-37); PLATELET COUNT (AUTO) 189 K/uL (140-450); RED BLOOD CELL COUNT(AUTO) 3.12 MIL/uL (4.20-5.40)
[2020-06-13 14:36] LABS: WHITE BLOOD COUNT (AUTO) 32.3 K/uL (4.8-10.8)
[2020-06-13 16:13] LABS: LYMPHOCYTES % (MANUAL) 1 % (20-46); MONOCYTES % (MANUAL) 3 % (5-12)
--- NOTE | 2020-06-13 16:24 | NUR ---
TELEPHONE READ BACK OF ABG RESULTS TO DR. TRUJILLO. STATES TO KEEP BIPAP PRESSURES THE SAME AND TITRATE FIO2.
--- NOTE | 2020-06-13 16:41 | NUR ---
DR TRUJILLO CALLED FOR PT CONDITION UPDATE, ORDERS RECIEVED Addendum: 06/13/20 at 1641 by Chrissy Woodall RN LOW URINE OUTPUT REPORTED
[2020-06-13] MEDS ORDERED: ALBUMIN HUMAN 25% 100 ML IV ONE (17:21)
[2020-06-13] MEDS ORDERED: ALBUMIN HUMAN 25% 100 ML IV SCH (18:00)
[2020-06-13] MEDS ORDERED: FUROSEMIDE 100 MG/10 ML VIAL IV SCH (18:00)
[2020-06-13] MEDS ORDERED: VANCOMYCIN PER PHARMACY MC PRN (18:50)
[2020-06-13] MEDS ORDERED: VANCOMYCIN 1GM/DEXT 5% PREMIX 200 ML IV SCH (19:50)
--- NOTE | 2020-06-13 20:00 | NUR ---
REPORT RECEIVED FROM DAY SHIFT RN. PT ON BIPAP. RESPIRATION EVEN BUT LABORED. PT TACHYPNEIC. CHEST EXPANSION SYMMETRICAL. SKIN WARM AND DRY. ORAL MUCOSA PINK AND MOIST. RIGHT UPPER ARM PICC. ASYMPTOMATIC, PATENT AND INTACT. NGT IN PLACE, PATENT AND INTACT. MARIE CATHETER DRAINING TO GRAVITY. BED IN LOWEST POSITION, SIDE RAILS UP, HOB 30 DEGREES. ISOLATION PRECAUTION MAINTAINED. WILL CONTINUE TO MONITOR.
[2020-06-13] MEDS ORDERED: PIPERACILLIN/TAZOBACTAM 2.25 GM VIAL IV ONE (21:57)
[2020-06-13] MEDS ORDERED: VANCOMYCIN 1,000 MG VIAL ONE (21:57)
[2020-06-13] MEDS: PIPERACILLIN/TAZOBACTAM 2.25 GM in DEXTROSE 5% 50 ML IV SCH (22:25)
[2020-06-14] VITALS (32 sets, daily range): BP systolic 95–140; BP diastolic 45–69
[2020-06-14] MEDS ORDERED: PIPERACILLIN/TAZOBACTAM 3.375 GM in DEXTROSE 5% 50 ML IV SCH ×2
--- NOTE | 2020-06-14 | NUR ---
TURNED AND REPOSITIONED PT. NO DISTRESS OBSERVED. PRESSURE AREAS OFFLOADED. WILL MONITOR PT.
[2020-06-14] MEDS: Z-GUARD PASTE TP SCH ×2 (01:00→12:52)
--- NOTE | 2020-06-14 04:00 | NUR ---
PT HAD A BOWEL MOVEMENT. PT CLEANED. MORNING CARE PROVIDED. PT CONDITION REMAINS UNCHANGED. PT TOLERATING BIPAP. WILL CONTINUE TO MONITOR.
[2020-06-14] MEDS ORDERED: PIPERACILLIN/TAZOBACTAM 2.25 GM VIAL IV ONE (06:22)
[2020-06-14] MEDS: PIPERACILLIN/TAZOBACTAM 2.25 GM in DEXTROSE 5% 50 ML IV SCH ×3 (06:42→20:25)
--- NOTE | 2020-06-14 07:20 | NUR ---
RECEIVED HANDOFF FROM SHOT HOLE DRILLER RN. PT APPEARS TO BE SLEEPING, BUT SPONTANEOUS EYE OPENING TO NAME. PT IS ON BIPAP WITH FIO2 OF 75%. PT HAS LOR PICC. NS IS RUNNING AT 5 ML/HR TKO. WEIGHT IS 79 KG. PT IS ON JEVITY AT 50 ML/HR WITH 115 ML Q 4 HR, BUT FEED IS HELD DUE TO BIPAP. WILL FOLLOW UP WITH FNS. PT HAS MARIE IN PLACE. PT IS SR ON THE MONITOR AT THIS TIME. WILL CONTINUE TO MONITOR.
[2020-06-14] MEDS: amLODIPine 5 MG TAB PO SCH (08:02)
[2020-06-14] MEDS: ASCORBIC ACID 500 MG/5 ML ORASYR PO SCH ×2 (08:09→20:27)
[2020-06-14] MEDS: DEXAMETHASONE 10 MG/ML VIAL IVP SCH (08:09)
[2020-06-14] MEDS: ZINC SULF 220 MG CAP PO SCH ×2 (08:09→20:27)
[2020-06-14] MEDS: PANTOPRAZOLE 40 MG INJ VIAL IVP SCH (08:10)
--- NOTE | 2020-06-14 08:34 | NUR ---
MEDICATIONS ADMINISTERED PER ORDER, PT TOLERATED WELL. MARIE CARE, CHG BATH, AND ORAL CARE PROVIDED. TEMPERATURE 97.0 TEMPORALLY. PT PLACED INTO HIGH GARCIA'S POSITION BY RT MARK PER DR. TRUJILLO'S REQUEST. PT REPOSITIONED.
[2020-06-14 11:12] LABS: ANION GAP 18.9 (8-16); CARBON DIOXIDE 23.4 mmol/L (21-32); CHLORIDE 105 mmol/L (98-107); CREATININE 2.5 mg/dL (0.6-1.3); GLUCOSE 100 mg/dL (74-106); POTASSIUM 5.3 mmol/L (3.5-5.1); SODIUM SERUM 142 mmol/L (136-145)
[2020-06-14 11:24] LABS: UREA NITROGEN, BLOOD 80 mg/dL (7-18)
--- NOTE | 2020-06-14 11:30 | NUR ---
INFORMED DR. TRUJILLO OF CRITICAL LAB VALUES. CONSULT FOR NEPHROLOGY ORDERED. ALSO ORDERED TPN.
[2020-06-14] MEDS ORDERED: TPN PER PHARMACY MC PRN (11:40)
--- NOTE | 2020-06-14 11:41 | NUR ---
DR. TIDWELL SEEING PT
[2020-06-14] MEDS: FUROSEMIDE 20 MG/2 ML VIAL IVP SCH ×2 (12:28→20:30)
[2020-06-14] MEDS ORDERED: FUROSEMIDE 20 MG/2 ML VIAL IVP SCH (12:30)
[2020-06-14] MEDS: SODIUM ZIRCONIUM CYCLOSILICATE 10 GM POWD.PACK PO SCH ×2 (12:51→20:28)
--- NOTE | 2020-06-14 13:15 | NUR ---
MEDICATIONS ADMINISTERED PER ORDER, PT TOLERATED WELL. PT REPOSITIONED. TEMPERATURE 97.3. AXILLARY. PER RT MARK, FIO2 NOW AT 50%. STILL SATTING 100%.
[2020-06-14 13:22] LABS: MAGNESIUM 2.9 mg/dL (1.8-2.4); PHOSPHORUS 7.2 mg/dL (2.5-4.9)
[2020-06-14 16:06] LABS: HEMATOCRIT 22.5 % (36-48); HEMOGLOBIN 7.4 g/dL (12.0-16.0); LYMPHOCYTES # (AUTO) 0.3 K/uL (2.5-16.5); LYMPHOCYTES % (AUTO) 2.6 % (20.5-51.1); MEAN CORPUSCULAR HEMOGLOBIN 30 pg (27-31); MEAN CORPUSCULAR HGB CONC 33 g/dL (33-37); MONOCYTES # (AUTO) 0.3 K/uL (0.8-1.0); MONOCYTES % (AUTO) 2.1 % (1.7-9.3); NEUTROPHILS # (AUTO) 11.7 K/uL (1.8-7.7); NEUTROPHILS % (AUTO) 95.3 % (42.2-75.2); PLATELET COUNT (AUTO) 95 K/uL (140-450); WHITE BLOOD COUNT (AUTO) 12.2 K/uL (4.8-10.8)
--- NOTE | 2020-06-14 16:20 | NUR ---
PT REPOSITIONED. TEMPERATURE 98.0 AXILLARY. VSS. NO SIGNS OF RESPIRATORY DISTRESS. Addendum: 06/14/20 at 1752 by Julisa Marrero RN RN PICC LINE DRESSING CHANGED WELL.
[2020-06-14] MEDS: BLOOD GLUCOSE MONITORING 1 DEV DEV MC SCH ×2 (18:28→20:41)
--- NOTE | 2020-06-14 18:28 | NUR ---
BS 101, NO INSULIN NEEDED. PT CLEANED, REPOSITIONED. 250 ML CLEAR YELLOW URINE DRAINED FROM MARIE CATH
--- NOTE | 2020-06-14 19:19 | NUR ---
HANDOFF GIVEN TO ANIMAL RIDE ATTENDANT RN FOR CONTINUITY OF CARE
--- NOTE | 2020-06-14 19:30 | NUR ---
RECEIVED REPORT FROM DAY SHIFT PATIENT IS ON SEMIFOWLERS POSITION EYES ARE OPEN ,PATIENT IS ON BIPAP WITH 40% FIO2.PATIENT IS FOLLOWING SIMPLE COMMAND BY WEAK FRUIT SORTER ALL EXTREMITIES ARE VERY STIFF.PATIENT IS IN SINUS RYTHM,PATIENT LOOKING COMFORTABLE SATURATING 98PATIENT WITH GENERALIZED EDEMA,MARIE CATH IN PLACE URINE IS BRITTANI COLORED
[2020-06-14] MEDS: DEXTROSE IV SCH ×4 (19:43)
[2020-06-14] MEDS: MULTIVITAMIN IV SCH ×4 (19:43)
[2020-06-14] MEDS: AMINO ACIDS IV SCH ×4 (19:43)
[2020-06-14] MEDS: [UNRECOGNIZED DRUG - OTHER] IV SCH ×4 (19:43)
--- NOTE | 2020-06-14 19:46 | NUR ---
placed gel protection on patients face to prevent redness
--- NOTE | 2020-06-14 20:35 | NUR ---
TPN STARTED AT 50CC/HR.
[2020-06-14] MEDS ORDERED: VANCOMYCIN 500 MG in DEXTROSE 5% 100 ML IV SCH (21:00)
--- NOTE | 2020-06-14 22:00 | NUR ---
PATIENT REMAINING STABLE TOLERATING TPN AND SATURATING GOOD ON BIPAP.
[2020-06-15] VITALS (20 sets, daily range): BP systolic 120–157; BP diastolic 52–74
[2020-06-15] MEDS: Z-GUARD PASTE TP SCH ×2 (01:00→12:26)
[2020-06-15] MEDS: FUROSEMIDE 20 MG/2 ML VIAL IVP SCH ×3 (04:39→21:57)
[2020-06-15] MEDS: PIPERACILLIN/TAZOBACTAM 2.25 GM in DEXTROSE 5% 50 ML IV SCH ×3 (04:42→21:57)
[2020-06-15] MEDS: SODIUM ZIRCONIUM CYCLOSILICATE 10 GM POWD.PACK PO SCH (04:43)
[2020-06-15] MEDS: BLOOD GLUCOSE MONITORING 1 DEV DEV MC SCH ×3 (06:28→17:31)
--- NOTE | 2020-06-15 07:15 | NUR ---
RECEIVED REPORT FROM MOVER RN. POC DISCUSSED. PATIENT RECEIVED RESTING, EYES CLOSED. ON A BIPAP @ 50% O2. NO SOB NOTED. NO CARDIAC DISTRESS. NO PRESSORS. PT ON TPN VIA PICC RUNNING AT 70 MLS/HR. UPPER EXTREMITIES PLUS 3 PITTING EDEMA, ELEVATED WITH PILLOW. MARIE CATH INTACT DRAINING CLEAR YELLOW URINE. KEPT PT WARM WITH BLANKET. WILL CONTINUE TO MONITOR.
[2020-06-15 07:24] LABS: ALBUMIN 2.4 g/dL (3.4-5.0); ANION GAP 17.5 (8-16); ASPARTATE AMINOTRANSFERASE 34 U/L (15-37); CARBON DIOXIDE 23.2 mmol/L (21-32); CHLORIDE 106 mmol/L (98-107); CREATININE 3.2 mg/dL (0.6-1.3); GLUCOSE 147 mg/dL (74-106); MAGNESIUM 3.1 mg/dL (1.8-2.4); PHOSPHORUS 7.5 mg/dL (2.5-4.9); POTASSIUM 4.7 mmol/L (3.5-5.1); SODIUM SERUM 142 mmol/L (136-145); TOTAL BILIRUBIN 0.9 mg/dL (0.0-1.0)
[2020-06-15 07:58] LABS: UREA NITROGEN, BLOOD 100 mg/dL (7-18)
--- NOTE | 2020-06-15 08:00 | NUR ---
Received patient on the Bipap , R 20, Fio2 50%, I time 1.0. Pt tolerating well the Bipap with no adverse reaction of respiratory distress. Bipap plugged to the red outlet. Ambu bag @ bedside. Alarms set audible, will continue to monitor.
--- NOTE | 2020-06-15 08:45 | NUR ---
SEEN AND EXAMINED BY DR. TRUJILLO. MADE AWARE PT'S HIGH BUN AND CREATININE. PT ON BIPAP. NO RESPIRATORY DISTRESS. PT REPOSITIONED. KEPT HOB ELEVATED.
[2020-06-15] MEDS: ASCORBIC ACID 500 MG/5 ML ORASYR PO SCH ×2 (09:14→21:57)
[2020-06-15] MEDS: PANTOPRAZOLE 40 MG INJ VIAL IVP SCH (09:14)
[2020-06-15] MEDS: DEXAMETHASONE 10 MG/ML VIAL IVP SCH (09:14)
[2020-06-15] MEDS: amLODIPine 5 MG TAB PO SCH (09:14)
[2020-06-15] MEDS: ZINC SULF 220 MG CAP PO SCH ×2 (09:15→21:58)
[2020-06-15] MEDS: INSULIN LISPRO SLIDING SCALE 100 UNITS/ML VIAL SUBQ PRN ×2 (12:20→17:32)
--- NOTE | 2020-06-15 12:45 | NUR ---
SEEN AND EXAMINED BY YAW WALLACE. REPORTED AND MADE AWARE PT'S ELEVATED BUN AND CREATININE. NO HD ORDER FOR NOW. SPOKE PT'S FAMILY BY . KEPT PT ON FULL CODE. ORDERED TO DECREASE TPN RATE TO PREVENT FLUID OVERLOAD. NO CHAGEN OF CONDITION AT THIS TIME.
--- NOTE | 2020-06-15 14:00 | NUR ---
TPN DECREASED TO 40 ML/HR RATE PER MD ORDER.
--- NOTE | 2020-06-15 15:45 | NUR ---
Bipap alarming big leak, change to a another Bipap id ([id number]). Gave patient vacation from the Bipap pt sating 100% on nonrebreather with no sign of respiratory distress. Will continue to monitor
--- NOTE | 2020-06-15 16:00 | NUR ---
RT PLACED PT TO NON REBREATHER MASK @ 50%. PT TOLERATED WELL. OBTAINED 100% O2 SAT. NO SOB NOTED.
--- NOTE | 2020-06-15 16:01 | NUR ---
06/15/20 RD FOLLOW UP COMPLETED PLEASE REFER TO NUTRITION ASSESSMENT UNDER CARE ACTIVITY FOR ESTIMATED NUTRITIONAL NEEDS. 1. CONTINUE TPN PER PHARMACY PROTOCOL. CURRENT TPN OF D15%, AA 425%, LIPIDS 10% 100 ML @ 70 ML/HR. THIS PROVIDES 1680 ML OF VOLUME, 1241 KCAL, AND 71 GM OF PROTEIN. MEETING 100% OF ESTIMATED KCAL AND PROTEIN NEEDS. 2. CONSIDER A SWALLOW EVALUATION IF PATIENTS STATUS IMPROVES AND SHE IS TAKEN OFF BIPAP 3. CONSULT RD IF PATIENT NEEDS ENTERAL SUPPORT 4. RD TO FOLLOW-UP 2-3 DAYS, HIGH RISK REBECCA KOROMA, MEGHANN
--- NOTE | 2020-06-15 19:30 | NUR ---
HANDOFF REPORT ENDORSED TO YOKER RN. POC DISCUSSED. NO CHANGE OF CONDITION.
[2020-06-15] MEDS: MULTIVITAMIN IV SCH ×4 (20:00)
[2020-06-15] MEDS: [UNRECOGNIZED DRUG - OTHER] IV SCH ×4 (20:00)
[2020-06-15] MEDS: DEXTROSE IV SCH ×4 (20:00)
[2020-06-15] MEDS: AMINO ACIDS IV SCH ×4 (20:00)
[2020-06-15] MEDS ORDERED: VANCOMYCIN 1,000 MG in DEXTROSE 5% 250 ML IV SCH (21:00)
[2020-06-16] VITALS (22 sets, daily range): BP systolic 140–187; BP diastolic 54–77
[2020-06-16] MEDS: Z-GUARD PASTE TP SCH ×2 (01:00→13:00)
[2020-06-16] MEDS: PIPERACILLIN/TAZOBACTAM 2.25 GM in DEXTROSE 5% 50 ML IV SCH ×3 (05:00→20:05)
[2020-06-16] MEDS: FUROSEMIDE 20 MG/2 ML VIAL IVP SCH ×3 (05:00→20:06)
[2020-06-16 05:47] LABS: ANION GAP 19.4 (8-16); CARBON DIOXIDE 22.1 mmol/L (21-32); CHLORIDE 104 mmol/L (98-107); CREATININE 3.8 mg/dL (0.6-1.3); GLUCOSE 128 mg/dL (74-106); POTASSIUM 4.5 mmol/L (3.5-5.1); SODIUM SERUM 141 mmol/L (136-145)
[2020-06-16 05:48] LABS: ALBUMIN 2.5 g/dL (3.4-5.0); ASPARTATE AMINOTRANSFERASE 33 U/L (15-37); MAGNESIUM 3.2 mg/dL (1.8-2.4); PHOSPHORUS 7.8 mg/dL (2.5-4.9); TOTAL BILIRUBIN 1.1 mg/dL (0.0-1.0)
[2020-06-16] MEDS: BLOOD GLUCOSE MONITORING 1 DEV DEV MC SCH ×4 (06:40→18:36)
[2020-06-16 07:10] LABS: UREA NITROGEN, BLOOD 122 mg/dL (7-18)
[2020-06-16] MEDS: PANTOPRAZOLE 40 MG INJ VIAL IVP SCH (08:16)
[2020-06-16] MEDS: DEXAMETHASONE 10 MG/ML VIAL IVP SCH (08:16)
[2020-06-16] MEDS: amLODIPine 5 MG TAB PO SCH (08:17)
[2020-06-16] MEDS: ZINC SULF 220 MG CAP PO SCH ×2 (08:17→20:06)
[2020-06-16] MEDS: ASCORBIC ACID 500 MG/5 ML ORASYR PO SCH ×2 (08:17→20:05)
[2020-06-16 08:49] LABS: BASOPHILS % (AUTO) 0.1 % (0.0-2.0); EOSINOPHILS % (AUTO) 0.1 % (0.0-4.0); HEMATOCRIT 22.4 % (36-48); HEMOGLOBIN 7.3 g/dL (12.0-16.0); LYMPHOCYTES # (AUTO) 0.8 K/uL (2.5-16.5); LYMPHOCYTES % (AUTO) 6.2 % (20.5-51.1); MEAN CORPUSCULAR HEMOGLOBIN 29 pg (27-31); MEAN CORPUSCULAR HGB CONC 33 g/dL (33-37); MEAN CORPUSCULAR VOLUME 89.7 fL (80-94); MONOCYTES # (AUTO) 0.9 K/uL (0.8-1.0); MONOCYTES % (AUTO) 6.6 % (1.7-9.3); NEUTROPHILS # (AUTO) 11.8 K/uL (1.8-7.7); PLATELET COUNT (AUTO) 110 K/uL (140-450); RED CELL DISTRIBUTION WIDTH 15.6 % (11.6-13.7); WHITE BLOOD COUNT (AUTO) 13.6 K/uL (4.8-10.8)
[2020-06-16 08:56] LABS: CARBON DIOXIDE 19.4 mmol/L (21-32); CHLORIDE 104 mmol/L (98-107); CREATININE 3.9 mg/dL (0.6-1.3); GLUCOSE 124 mg/dL (74-106); POTASSIUM 4.4 mmol/L (3.5-5.1); SODIUM SERUM 140 mmol/L (136-145)
[2020-06-16 09:14] LABS: UREA NITROGEN, BLOOD 120 mg/dL (7-18)
[2020-06-16] MEDS: VANCOMYCIN 1,000 MG in DEXTROSE 5% 250 ML IV SCH ×2 (10:00→12:44)
--- NOTE | 2020-06-16 11:45 | NUR ---
VISIT BY CASSANDRA WALLACE ORDER RECEIVED.
--- NOTE | 2020-06-16 12:00 | NUR ---
BLOOD GLUCOSE 140 NO INSULIN GIVEN.
--- NOTE | 2020-06-16 12:35 | NUR ---
BP 178/79 HR 116 APRESOLINE 10MG IVP GIVEN ORDERED,
[2020-06-16] MEDS: hydrALAZINE 20 MG/ML VIAL IVP PRN ×3 (12:45→18:45)
--- NOTE | 2020-06-16 13:00 | NUR ---
VISIT BY DR. TIDWELL NO ORDER CHANGED.
--- NOTE | 2020-06-16 18:00 | NUR ---
BLOOD SUGAR 170 INSULIN GIVEN ORDERED.
--- NOTE | 2020-06-16 18:00 | NUR ---
BP 188/75 APRESOLINE GAVE ORDERER.
--- NOTE | 2020-06-16 19:30 | NUR ---
REPORT GIVED TO MABEL FOR CONTINUOS CARE.
--- NOTE | 2020-06-16 19:30 | NUR ---
SWALLOW EVALUATION ORDERED.
--- NOTE | 2020-06-16 19:30 | NUR ---
RECEIVED PATIENT ON BED IN SEMI FOWLERS POSITION; AROUSABLE TO SIMPLE COMMANDS. VENTILATING ON 50% 02 PER VENTURI MASK; S02 97%. CARDIACSCOPE SHOWS ON SINUS RHYTHM WITH BUNDLE BRANCH BLOCK HR 83/MIN WITH OCCASIONAL PVC'S. IVF IN PROGRESS NS KVO AND ON TPN AT 40 ML/HR VIA PICC LINE ON RIGHT UPPER ARM; PATENT AND INTACT. ABDOMEN SOFT AND OBESE;NPO EXCEPT MEDS GIVEN THRU NGT; WITH MARIE CATH IN PLACE TO GRAVITY DRAINAGE BAG DRAINING TO CLEAR BRITTANI COLOR WITH SEDIMENT URINE OUTPUT; PATENT AND INTACT.
[2020-06-16] MEDS ORDERED: DEXTROSE IV SCH ×4 (20:00)
[2020-06-16] MEDS ORDERED: MULTIVITAMIN IV SCH ×4 (20:00)
[2020-06-16] MEDS ORDERED: [UNRECOGNIZED DRUG - OTHER] IV SCH ×4 (20:00)
[2020-06-16] MEDS ORDERED: AMINO ACIDS IV SCH ×4 (20:00)
--- NOTE | 2020-06-16 22:00 | NUR ---
TURNED AND REPOSITIONED THE PATIENT.
[2020-06-17] VITALS (14 sets, daily range): BP systolic 147–180; BP diastolic 57–75
[2020-06-17] MEDS: hydrALAZINE 20 MG/ML VIAL IVP PRN
[2020-06-17] MEDS: BLOOD GLUCOSE MONITORING 1 DEV DEV MC SCH ×4 (00:42→18:14)
[2020-06-17] MEDS: Z-GUARD PASTE TP SCH ×2 (01:00→12:27)
[2020-06-17] MEDS: FUROSEMIDE 20 MG/2 ML VIAL IVP SCH (05:18)
[2020-06-17] MEDS: PIPERACILLIN/TAZOBACTAM 2.25 GM in DEXTROSE 5% 50 ML IV SCH ×3 (05:18→22:35)
[2020-06-17 05:47] LABS: ALBUMIN 2.4 g/dL (3.4-5.0); ANION GAP 21.4 (8-16); ASPARTATE AMINOTRANSFERASE 42 U/L (15-37); CARBON DIOXIDE 20.7 mmol/L (21-32); CHLORIDE 103 mmol/L (98-107); CREATININE 3.9 mg/dL (0.6-1.3); GLUCOSE 124 mg/dL (74-106); POTASSIUM 4.1 mmol/L (3.5-5.1); SODIUM SERUM 141 mmol/L (136-145); TOTAL BILIRUBIN 1.7 mg/dL (0.0-1.0)
[2020-06-17 06:49] LABS: UREA NITROGEN, BLOOD 134 mg/dL (7-18)
[2020-06-17] MEDS: DEXAMETHASONE 10 MG/ML VIAL IVP SCH (09:34)
[2020-06-17] MEDS: FUROSEMIDE 40 MG/4 ML VIAL IVP SCH ×2 (09:34→18:09)
[2020-06-17] MEDS: PANTOPRAZOLE 40 MG INJ VIAL IVP SCH (09:34)
[2020-06-17] MEDS: ZINC SULF 220 MG CAP PO SCH ×2 (09:35→22:35)
[2020-06-17] MEDS: amLODIPine 5 MG TAB PO SCH (09:35)
[2020-06-17] MEDS: ACETAMINOPHEN 325 MG TAB PO PRN (10:01)
[2020-06-17] MEDS: SODIUM BICARBONATE 650 MG TAB PO SCH ×3 (12:27→22:35)
[2020-06-17 14:05] LABS: ALBUMIN 2.4 g/dL (3.4-5.0); ANION GAP 21.5 (8-16); ASPARTATE AMINOTRANSFERASE 51 U/L (15-37); CHLORIDE 102 mmol/L (98-107); GLUCOSE 364 mg/dL (74-106); POTASSIUM 4.5 mmol/L (3.5-5.1); SODIUM SERUM 139 mmol/L (136-145)
[2020-06-17 14:10] LABS: UREA NITROGEN, BLOOD 141 mg/dL (7-18)
--- NOTE | 2020-06-17 15:46 | NUR ---
CHECKED THE PATIENT. O2 SAT 99% WITH 15L NRB, HR 91. NO ACUTE DISTRESS NOTED. WILL CONTINUE TO MONITOR.
--- NOTE | 2020-06-17 17:20 | NUR ---
ASSISTED WOMEN'S ACTIVITIES ADVISER TO CLEAN AND CHANGE THE PATIENT. LOOSE STOOL NOTED. SACRAL BUTTOCK WOUND NOTED. PHOTO TAKEN. PATIENT TOLERATED THE PROCEDURE WELL. WILL CONTINUE TO MONITOR.
[2020-06-17] MEDS: INSULIN LISPRO SLIDING SCALE 100 UNITS/ML VIAL SUBQ PRN (18:23)
--- NOTE | 2020-06-17 19:05 | NUR ---
RECEIVED BEDSIDE REPORT FROM DAY SHIFT NURSE FOR CONTINUITY OF CARE. PT IS AWAKE, LAYING IN SEMI FOWLERS POSITION. ON 15L O2 NRB WITH BREATHING UNLABORED. LUNG SOUNDS DIMINISHED. SR ON TELE MONITORING. NG TUBE IN PLACE. MARIE CATH IN PLACE. SACRAL WOUND, OPEN, AND WITH OPTIFOAM IN PLACE. LAST BM TODAY PER DAY SHIFT NURSE. PICC LINE IN THE RIGHT UPPER ARM. PLAN OF CARE DISCUSSED. DROPLET PRECAUTIONS AND FALL PRECAUTIONS IN PLACE.
--- NOTE | 2020-06-17 19:25 | NUR ---
ENDORSED PATIENT TO [employer] HADOOP DEVELOPER RN FOR CONTINUITY OF CARE. PATIENT IN STABLE CONDITION. O2 SAT 100% WITH 15L NRB.
[2020-06-17] MEDS: MULTIVITAMIN-12 10 ML in DEXTROSE 50% 480 ML, AMINO ACIDS 8.5% 380 ML, FAT EMULSION 20%... IV SCH ×4 (20:00)
--- NOTE | 2020-06-17 21:30 | NUR ---
PT WAS CHANGED AND REPOSITIONED. PT HAD A BM. BM WAS LIQUID AND BROWN IN COLOR. BREATHING IS UNLABORED. PT APPEARS TO BE STABLE AT THIS TIME.
--- NOTE | 2020-06-17 22:00 | NUR ---
RT IS AT BEDSIDE ASSESSING PT. ADJUSTED BIPAP AND GAVE PT WATER. PT DESATURATED TO 80% WHEN TAKING THE BIPAP OFF FOR WATER. BREATHING IS LABORED. O2 SAT IS NOW 89% AFTER PLACING BIPAP BACK ON. Addendum: 06/18/20 at 0422 by Amalia Hare RN CHARTED ON WRONG PT. THIS NOTE IS NOT FOR THIS PT.
[2020-06-17] MEDS ORDERED: PIPERACILLIN/TAZOBACTAM 2.25 GM VIAL IV ONE (22:32)
[2020-06-17] MEDS: ASCORBIC ACID 500 MG TAB PO SCH (22:35)
--- NOTE | 2020-06-17 23:30 | NUR ---
ROUNDED ON PT. BREATHING IS UNLABORED ON 15L O2 NRB WITH O2 SAT 99%. PT IS STABLE AT THIS TIME. TPN IS INFUSING ORDERED. PICC LINE IS PATENT AND FLUSHING WELL. WILL CONTINUE TO MONITOR.
[2020-06-18] VITALS: BP 141/57
--- NOTE | 2020-06-18 | NUR ---
SPOKE TO ON THE PHONE. UPDATED HIM ON THE PLAN OF CARE AND STATUS OF THE PT. ALL QUESTIONS WERE ANSWERED. Addendum: 06/18/20 at 0424 by Amalia Hare RN CHARTED ON THE WRONG PT. THIS NOTE IS NOT FOR THIS PT.
[2020-06-18] MEDS: BLOOD GLUCOSE MONITORING 1 DEV DEV MC SCH ×4 (00:19→18:08)
--- NOTE | 2020-06-18 01:30 | NUR ---
PT IS SLEEPING IN SEMI FOWLERS POSITION. PT WAS REPOSITIONED. NG TUBE WAS CHECKED FOR PLACEMENT AND WAS IN THE CORRECT PLACE. WOUND WAS ASSESSED ON THE BUTTOCKS AND NEW DRESSING WAS APPLIED. PT IS STABLE.
[2020-06-18] MEDS: Z-GUARD PASTE TP SCH ×2 (01:39→12:56)
--- NOTE | 2020-06-18 03:00 | NUR ---
RT IS AT BEDSIDE ASSESSING PT. O2 SAT IS 89% ON BIPAP. BREATHING IS LABORED. RR IS 40. Addendum: 06/18/20 at 0425 by Amalia Hare RN CHARTED ON THE WRONG PT. THIS NOTE IS NOT FOR THIS PT.
[2020-06-18 04:00] VITALS: BP 154/58
--- NOTE | 2020-06-18 04:00 | NUR ---
PT HAS AWOKEN EASILY TO NOISE. NO DISTRESS AT THIS TIME. CHEST RISE AND FALL IS SYMMETRICAL. BREATHING IS UNLABORED. PT IS STABLE.
--- NOTE | 2020-06-18 04:40 | NUR ---
PT IS ASLEEP. PT WAS REPOSITIONED. LINENS WERE CLEAN AND DIAPER WAS DRY/ IN PLACE. TPN IS INFUSING ORDERED. PT IS STABLE.
[2020-06-18] MEDS ORDERED: PIPERACILLIN/TAZOBACTAM 2.25 GM VIAL IV ONE (04:59)
[2020-06-18] MEDS: PIPERACILLIN/TAZOBACTAM 2.25 GM in DEXTROSE 5% 50 ML IV SCH ×3 (05:04→21:28)
--- NOTE | 2020-06-18 05:30 | NUR ---
PT'S BS IS 119. PT DOES NOT NEED INSULIN COVERAGE PER SLIDING SCALE. PT IS STABLE AT THIS TIME. SHE WAS REPOSITIONED PER PROTOCOL.
--- NOTE | 2020-06-18 07:05 | NUR ---
ENDORSED PT TO DAY SHIFT NURSE FOR CONTINUITY OF CARE. PT IS STABLE AT THIS TIME. NO DISTRESS NOTED.
--- NOTE | 2020-06-18 07:10 | NUR ---
RECEIVED REPORT FROM NIGHTSHIFT NURSE. PT RESTING IN BED. FLACC 0. RESPIRATIONS EVEN AND UNLABORED WITH NO SOB OR RESPIRATORY DISTRESS. SKIN WARM AND DRY TO TOUCH. R UPPER ARM MIDLINE IS CLEAN, DRY, AND INTACT. SAFETY MEASURES IN PLACE. WILL CONTINUE TO MONITOR
[2020-06-18 08:00] VITALS: BP 139/75
[2020-06-18] MEDS: SODIUM BICARBONATE 650 MG TAB PO SCH ×4 (09:00→21:28)
[2020-06-18 09:57] LABS: ALBUMIN 2.4 g/dL (3.4-5.0); ANION GAP 22.6 (8-16); ASPARTATE AMINOTRANSFERASE 51 U/L (15-37); CARBON DIOXIDE 20.4 mmol/L (21-32); CHLORIDE 104 mmol/L (98-107); GLUCOSE 141 mg/dL (74-106); MAGNESIUM 2.9 mg/dL (1.8-2.4); PHOSPHORUS 5.1 mg/dL (2.5-4.9); SODIUM SERUM 143 mmol/L (136-145); TOTAL BILIRUBIN 1.7 mg/dL (0.0-1.0)
[2020-06-18 10:14] LABS: UREA NITROGEN, BLOOD 159 mg/dL (7-18)
[2020-06-18] MEDS: amLODIPine 5 MG TAB PO SCH (10:14)
[2020-06-18] MEDS: ZINC SULF 220 MG CAP PO SCH ×2 (10:15→21:27)
[2020-06-18] MEDS: ASCORBIC ACID 500 MG TAB PO SCH ×2 (10:15→21:27)
[2020-06-18] MEDS: PANTOPRAZOLE 40 MG INJ VIAL IVP SCH (10:16)
[2020-06-18] MEDS: DEXAMETHASONE 10 MG/ML VIAL IVP SCH (10:18)
[2020-06-18] MEDS: FUROSEMIDE 40 MG/4 ML VIAL IVP SCH ×2 (10:19→17:05)
--- NOTE | 2020-06-18 10:30 | NUR ---
ADMINISTERED SCHED MED PRESCRIBED PER MD ORDER. PT TOLERATED WELL. MEDICATION EDUCATION PERFORMED. PT CONFUSED AND UNABLE TO VERBALIZED UNDERSTANDING. SAFETY MEASURES IN PLACE. WILL CONTINUE TO MONITOR
--- NOTE | 2020-06-18 10:46 | NUR ---
06/18/20 RD FOLLOW UP COMPLETED. PLEASE REFER TO NUTRITION ASSESSMENT UNDER CARE ACTIVITY FOR ESTIMATED NUTRITIONAL NEEDS. 1. CONTINUE TPN PER PHARMACY PROTOCOL., CURRENT TPN: D15%, AA 4.25%, LIPIDS 10% 100 ML @ 40 ML/HR. THIS PROVIDES 1709 KCAL, AND 40 GM OF PROTEIN. MEETING >100% OF ESTIMATED KCAL AND 62% ESTIMATED PROTEIN NEEDS 2. CONSIDER A SWALLOW EVALUATION PATIENTS RESPIRATORY STATUS IMPROVES 3. CONSULT RD IF PATIENT NEEDS ENTERAL SUPPORT 4. RD TO FOLLOW-UP 2-3 DAYS, HIGH RISK SAVITA TY, MEGHANN
[2020-06-18 12:00] VITALS: BP 155/64
--- NOTE | 2020-06-18 12:00 | NUR ---
PT BLOOD SUGAR IS 142. NO INSULIN NEEDED AT THIS TIME. SAFETY MEASURES IN PLACE. WILL CONTINUE TO MONITOR
--- NOTE | 2020-06-18 15:30 | NUR ---
PT RESTING IN BED. FLACC 0. RESPIRATIONS EVEN AND UNLABORED WITH NO SOB OR RESPIRATORY DISTRESS. SKIN WARM AND DRY TO TOUCH. SAFETY MEASURES IN PLACE. WILL CONTINUE TO MONITOR
[2020-06-18 16:00] VITALS: BP 149/61
--- NOTE | 2020-06-18 18:00 | NUR ---
PT BLOOD SUGAR IS 201. PRN INSULIN WILL BE ADMINISTERED PRESCRIBED PER MD ORDER. SAFETY MEASURES IN PLACE. WILL CONTINUE TO MONITOR
[2020-06-18] MEDS: INSULIN LISPRO SLIDING SCALE 100 UNITS/ML VIAL SUBQ PRN (18:08)
--- NOTE | 2020-06-18 19:05 | NUR ---
RECEIVED BEDSIDE REPORT FROM DAY SHIFT NURSE FOR CONTINUITY OF CARE. PT IS AWAKE AND LAYING IN SEMI FOWLERS POSITION. PT IS NOT ALERT AND DOESN'T RESPOND VERBALLY. PT IS ON BIPAP WITH BREATHING UNLABORED. ON TELE MONITORING. NG TUBE IN PLACE. MARIE CATH IN PLACE. SACRAL WOUND, OPEN WITH OPTIFOAM IN PLACE. RIGHT UPPER ARM PICC LINE FLUSHING WELL. MVI TPN RUNNING AT 40 ML PER HOUR PER ORDER. LABS ARE PENDING, WILL CALL HAZARDOUS MATERIAL SPECIALIST EZEKIEL TO GET RESULTS. DROPLET PRECAUTIONS IN PLACE FOR COVID POSITIVE. PLAN OF CARE DISCUSSED. FALL PRECAUTION IN PLACE.
--- NOTE | 2020-06-18 19:13 | NUR ---
ENDORSED TO NIGHTSHIFT FOR CONTINUITY OF CARE. PT IS STABLE
[2020-06-18 20:00] VITALS: BP 142/100
--- NOTE | 2020-06-18 20:00 | NUR ---
PT FOUND RESTING COMFORTABLY ON BIPAP PER DRS ORDERS, PT TOLERATING WELL
--- NOTE | 2020-06-18 20:08 | NUR ---
CALLED LAB TO INFORM THEM THAT THE LABS HAVE NOT COME IN FROM THIS MORNINGS LAB DRAW, CBC. WELCOME WAGON HOSTESS SAID SHE WOULD CHECK ON IT WHEN SHE IS BACK FROM BREAK AND DELIVER RESULTS.
--- NOTE | 2020-06-18 21:00 | NUR ---
HEPARIN WAS HELD PER PROTOCOL FOR PLATELET OF 97.
[2020-06-18 21:04] LABS: BASOPHILS % (AUTO) 0.3 % (0.0-2.0); EOSINOPHILS % (AUTO) 0.2 % (0.0-4.0); LYMPHOCYTES # (AUTO) 0.5 K/uL (2.5-16.5); LYMPHOCYTES % (AUTO) 4.7 % (20.5-51.1); MEAN CORPUSCULAR HEMOGLOBIN 30 pg (27-31); MEAN CORPUSCULAR HGB CONC 34 g/dL (33-37); MEAN CORPUSCULAR VOLUME 90.2 fL (80-94); MONOCYTES # (AUTO) 0.6 K/uL (0.8-1.0); MONOCYTES % (AUTO) 5.4 % (1.7-9.3); NEUTROPHILS # (AUTO) 9.5 K/uL (1.8-7.7); NEUTROPHILS % (AUTO) 89.4 % (42.2-75.2); PLATELET COUNT (AUTO) 97 K/uL (140-450); RED BLOOD CELL COUNT(AUTO) 1.78 MIL/uL (4.20-5.40); RED CELL DISTRIBUTION WIDTH 15.9 % (11.6-13.7)
[2020-06-18 21:05] LABS: HEMATOCRIT 16.1 % (36-48); HEMOGLOBIN 5.4 g/dL (12.0-16.0)
[2020-06-18 21:06] LABS: WHITE BLOOD COUNT (AUTO) 10.6 K/uL (4.8-10.8)
--- NOTE | 2020-06-18 21:14 | NUR ---
RECEIVED A CALL FROM LAB FOR CRITICAL RESULTS. HGB 5.4 AND HCT 16.1. IT ANALYST SAID THESE WERE LABS FROM LAST NIGHT AT MIDNIGHT AND THE LAB WILL BE REDRAWN STAT. WILL INFORM
--- NOTE | 2020-06-18 21:30 | NUR ---
PT WAS REPOSITIONED AND LINENS WERE CHANGED. PT IS STABLE AT THIS TIME. ON BIPAP WITH O2 SAT AT 95%. BREATHING IS UNLABORED.
[2020-06-18] MEDS: MULTIVITAMIN-12 10 ML in DEXTROSE 50% 480 ML, AMINO ACIDS 8.5% 380 ML, FAT EMULSION 20%... IV SCH ×4 (21:31)
--- NOTE | 2020-06-18 21:45 | NUR ---
AWAITING CALL BACK FROM DR. SPARKS FOR CRITICAL LAB REPORTING FOR HGB AND HCT.
--- NOTE | 2020-06-18 21:55 | NUR ---
RECEIVED ORDERS FROM DR. SPARKS VIA PHONE CALL. HE ORDERED 2 UNITS OF PRBC'S AND A STOOL OCCULT SAMPLE. WILL ADMINISTER ONCE READY.
--- NOTE | 2020-06-18 22:02 | NUR ---
CALLED LAB TO INFORM THEM THAT THE ORDER FOR PRBC'S 2 UNITS IS IN THE SYSTEM. SPOKE TO RUCHI AT THE BLOOD BANK, WILL NOTIFY WHEN READY.
--- NOTE | 2020-06-18 22:40 | NUR ---
DRAW BENCH OPERATOR AT BEDSIDE DOING TYPE AND SCREEN MATCH FOR BLOOD TRANSFUSION.
[2020-06-19] VITALS: BP 139/77
--- NOTE | 2020-06-19 | NUR ---
PT IS STABLE. LAYING IN SEMI FOWLERS POSITION. PT WAS REPOSITIONED PER PROTOCOL. NO RESPIRATORY DISTRESS NOTED, ON BIPAP. O2 SAT IS 98%. WILL CONTINUE TO MONITOR.
--- NOTE | 2020-06-19 00:10 | NUR ---
CALLED BLOOD BANK TO ASK IF THE BLOOD WAS READY TO TRANSFUSE. TRUST OPERATIONS ASSISTANT INFORMED ME THAT IT WOULD BE READY IN ABOUT 30 MINUTES AND HE WOULD GIVE ME A CALL WHEN IT WAS READY.
--- NOTE | 2020-06-19 00:15 | NUR ---
RECEIVED CONSENT VIA PHONE CALL TO DAUGHTER EILEEN FOFANA. RAGHU SANTIAGO ALSO VERIFIED WITH HER ON THE PHONE THAT SHE IS CONSENTING TO THE BLOOD TRANSFUSION. ALL QUESTIONS WERE ANSWERED. PT IS UNABLE TO MAKE DECISION ON HER ON SHE IS A&OX1.
[2020-06-19] MEDS: BLOOD GLUCOSE MONITORING 1 DEV DEV MC SCH ×2 (00:18→06:44)
[2020-06-19] MEDS: Z-GUARD PASTE TP SCH (01:18)
--- NOTE | 2020-06-19 02:25 | NUR ---
BLOOD TRANSFUSION HAS STARTED. DANAY KRISHNAMURTHY VERIFIED PT AND BLOOD TYPE FOR THE SECOND RN ARBORIST CLIMBER. PT IS STABLE AT THIS TIME. BP IS 126/68, HR 101, O2 SAT 98%, RR 28, TEMP 97.0 F, FLACC 0 PRIOR TO ADMINISTRATION OF BLOOD. WILL CONTINUE TO MONITOR AND STAY WITH PT.
[2020-06-19 04:00] VITALS: BP 121/60
--- NOTE | 2020-06-19 05:00 | NUR ---
PT HAD A BM. BM WAS DARK BROWN AND LIQUID STOOL. OCCULT STOOL WAS COLLECTED AND SENT TO LAB PER ORDER OF DR. SPARKS. WILL WAIT FOR RESULTS.
--- NOTE | 2020-06-19 05:15 | NUR ---
BLOOD TRANSFUSION IS COMPLETE. PT IS STABLE. BREATHING IS UNLABORED. THERE ARE NO SIGNS OF TRANSFUSION REACTION. BP IS 131/65, HR 82, O2 SAT 98% ON BIPAP, RR 28, TEMP 97.6 F, FLACC 0. WILL CONTINUE TO MONITOR. IV WAS FLUSHED WITH 50 ML NS.
[2020-06-19] MEDS: PIPERACILLIN/TAZOBACTAM 2.25 GM in DEXTROSE 5% 50 ML IV SCH (05:56)
--- NOTE | 2020-06-19 07:15 | NUR ---
ENDORSED PT TO DAY SHIFT NURSE FOR CONTINUITY OF CARE. PT IS STABLE AT THIS TIME. NO RESPIRATORY DISTRESS NOTED. BIPAP IS IN PLACE. O2 SAT IS 96%. ENDORSED THE SECOND UNIT OF BLOOD TO THE RN TAKING OVER PT CARE. PLAN OF CARE DISCUSSED.
[2020-06-19] MEDS: PANTOPRAZOLE 40 MG INJ VIAL IVP SCH (08:41)
[2020-06-19] MEDS: DEXAMETHASONE 10 MG/ML VIAL IVP SCH (08:42)
[2020-06-19] MEDS: ASCORBIC ACID 500 MG TAB PO SCH (08:43)
[2020-06-19] MEDS: FUROSEMIDE 40 MG/4 ML VIAL IVP SCH (08:51)
[2020-06-19] MEDS: amLODIPine 5 MG TAB PO SCH (08:53)
[2020-06-19] MEDS: ZINC SULF 220 MG CAP PO SCH (08:55)
[2020-06-19] MEDS: SODIUM BICARBONATE 650 MG TAB PO SCH (08:55)
[2020-06-19] MEDS ORDERED: ENOXAPARIN 60 MG/0.6 ML SYR SUBQ SCH (09:00)
--- NOTE | 2020-06-19 11:16 | NUR ---
rAPID RESPONSE CALLED. IMMEDIATE RESPONSE TO THE PATIENT'S ROOM BY MD GILMAN, AND RAPID TEAM, INCLUDING CRITICAL GAMBLING COUNSELLOR AND MST DIRECTOR. PT FOUND TO HAVE NO PULSE ON BIPAP MACHINE AND COMPRESSIONS STARTED. A TOTAL OF 3 EPI AND 1 ATROPINE GIVEN THROUGHOUT THE CODE WITH RETURN TO ROSC AT 1125. PT INTUBATED AT 1122 AND SATURATION BETWEEN 25-49% ON 100% FIO2. MD CORBIN MADE AWARE.
--- NOTE | 2020-06-19 11:35 | NUR ---
UNABLE TO ACQUIRE A PATIENT BP OR PULSE. SPO2 NOT READING AND HR ON THE MONITOR IS 120s. CONTINUING TO ASSESS PATIENT CLOSELY.
[2020-06-19 11:40] VITALS: BP 132/64
--- NOTE | 2020-06-19 11:40 | NUR ---
CODE BLUE ACTIVATED, PT HAD ROSC AND WAS INTUBATED AND PLACED ON VENTILATOR. TOLERATING WELL.
--- NOTE | 2020-06-19 11:40 | NUR ---
CALLED DAUGHTERDONYA, IN ORDER TO UPDATE ON PATIENT STATUS. UPDATED HER ON PATIENT SPO2 BETWEEN 25-49% ON 100% FIO2. AFTER DISCUSSION WITH THE DAUGHTER SHE MADE THE DECISION TO TERMINAL WEAN PATIENT WITH COMFORT CARE. I CALLED MD CORBIN AND UPDATED ON PATIENT'S DAUGHTER'S WISHES. CHASITY RN CONFIRMED WITH DAUGHTER FOR CODE STATUS CHANGE VIA PHONE. RECEIVED NEW ORDERS FROM MD CORBIN, PLEASE SEE NEW ORDERS. EDUCATED DAUGHTER AND FAMILY CAN VISIT FROM OUTSIDE THE PATIENT'S ROOM WINDOW SINCE THE PATIENT IS COVID +, DAUGHTER VERBALIZED UNDERSTANDING. AWAITING DAUGHTER TO ARRIVE AT [facility].
[2020-06-19] MEDS ORDERED: MORPHINE SULFATE 10 MG/ML VIAL ONE (11:51)
[2020-06-19] MEDS ORDERED: MORPHINE SULFATE 50 MG in NACL 0.9% 45 ML IV PRN (11:56)
[2020-06-19] MEDS ORDERED: MORPHINE SULFATE 10 MG/ML SYR IVP SCH (12:01)
--- NOTE | 2020-06-19 12:20 | NUR ---
PATIENT DAUGHTER AND FAMILY ARRIVED OUTSIDE THE PATIENT'S WINDOW TO VISIT THE PATIENT.
[2020-06-19] MEDS: PROPOFOL 1000 MG/100 ML PREMIX 100 ML IV PRN (12:32)
--- NOTE | 2020-06-19 16:00 | NUR ---
DR GILMAN TURNED OFF VENTILATOR, PT .
[2020-06-19 22:25] VITALS: BP 148/69
== END 2020-06-20 04:33 | DRG 130 ==
LOC: MED 20:05 → MTU 05-31 00:09 → MIC 05-31 18:14 → MTU 06-17 14:00
PROVIDERS: ADMIT Hospitalist; ATTEND Hospitalist
PROC: 5A1955Z Respiratory Ventilation, Greater than 96 Consecutive Hours (ICD-10-PCS; principal; 2020-05-31)
PROC: 0BH17EZ Insertion of Endotracheal Airway into Trachea, Via Natural or Artificial Opening (ICD-10-PCS; 2020-05-31)
PROC: 02HV33Z Insertion of Infusion Device into Superior Vena Cava, Percutaneous Approach (ICD-10-PCS; 2020-05-31)
PROC: B548ZZA Ultrasonography of Superior Vena Cava, Guidance (ICD-10-PCS; 2020-05-31)
PROC: 30233N1 Transfusion of Nonautologous Red Blood Cells into Peripheral Vein, Percutaneous Approach (ICD-10-PCS; 2020-06-01)
PROC: XW13325 Transfusion of Convalescent Plasma (Nonautologous) into Peripheral Vein, Percutaneous Approach, New Technology Group 5 (ICD-10-PCS; 2020-06-05)
PROC: XW033E5 Introduction of Remdesivir Anti-infective into Peripheral Vein, Percutaneous Approach, New Technology Group 5 (ICD-10-PCS; 2020-06-05)
PROC: 5A09457 Assistance with Respiratory Ventilation, 24-96 Consecutive Hours, Continuous Positive Airway Pressure (ICD-10-PCS; 2020-06-13)
PROC: 5A09357 Assistance with Respiratory Ventilation, Less than 24 Consecutive Hours, Continuous Positive Airway Pressure (ICD-10-PCS; 2020-06-15)
PROC: 5A09357 Assistance with Respiratory Ventilation, Less than 24 Consecutive Hours, Continuous Positive Airway Pressure (ICD-10-PCS; 2020-06-16)
PROC: 5A09457 Assistance with Respiratory Ventilation, 24-96 Consecutive Hours, Continuous Positive Airway Pressure (ICD-10-PCS; 2020-06-18)
PROC: 0BH17EZ Insertion of Endotracheal Airway into Trachea, Via Natural or Artificial Opening (ICD-10-PCS; 2020-06-19)
PROC: 5A12012 Performance of Cardiac Output, Single, Manual (ICD-10-PCS; 2020-06-19)
PROC: 5A1935Z Respiratory Ventilation, Less than 24 Consecutive Hours (ICD-10-PCS; 2020-06-19)
DX: U07.1 COVID-19 (principal); A41.9 Sepsis, unspecified organism; J12.89 Other viral pneumonia; G93.41 Metabolic encephalopathy; J96.01 Acute respiratory failure with hypoxia; J96.02 Acute respiratory failure with hypercapnia; I50.9 Heart failure, unspecified; E66.01 Morbid (severe) obesity due to excess calories; I11.0 Hypertensive heart disease with heart failure; R65.21 Severe sepsis with septic shock; N17.9 Acute kidney failure, unspecified; E87.5 Hyperkalemia; E11.9 Type 2 diabetes mellitus without complications; Z66 Do not resuscitate; E78.5 Hyperlipidemia, unspecified; F03.90 Unspecified dementia, unspecified severity, without behavioral disturbance, psychotic disturbance, mood disturbance, and anxiety; M10.9 Gout, unspecified; I25.10 Atherosclerotic heart disease of native coronary artery without angina pectoris; I46.9 Cardiac arrest, cause unspecified; I25.2 Old myocardial infarction; Z68.36 Body mass index [BMI] 36.0-36.9, adult; Z95.1 Presence of aortocoronary bypass graft; Z95.2 Presence of prosthetic heart valve; Z79.899 Other long term (current) drug therapy; Z79.82 Long term (current) use of aspirin; Z95.0 Presence of cardiac pacemaker
CPT/HCPCS: 36415; 36430; 36600; 70450; 71045; 71260; 80048; 80053; 80202; 80305; 81001; 82272; 82550; 82803; 82948; 83036; 83540; 83605; 83735; 83880; 84100; 84439; 84443; 84450; 84478; 84484; 85025; 85379; 86140; 86886; 86900; 86901; 86920; 87040; 87070; 87081; 87205; 93005; 94002; 94003; 94640; 94660; 96365; 96367; 96375; 99291; A9153; C9113; G0480; G0482; J0360; J0456; J0696; J1100; J1644; J1940; J2060; J2270; J2543; J2704; J3010; J3370; J3490; J7030; J7060; P9016; P9017; P9046; Q9967